=== PATIENT | male | born 1960 | race Caucasian/White ===

== ENCOUNTER 2018-10-15 20:02 | Inpatient (IN) | payer MEDICARE, OTHER ==
[~2018-10-15] VITALS: Ht 200.7 cm; Wt 57.4 kg
[~2018-10-15 20:02] MED LIST: ATOR20 PO; COLCHICINE0.6 MG PO; GABA300 PO; HYDACE5 PO; IBUP800 PO; Keflex500 MG PO; Norco 5-325 Ta1 EACH PO; OXYACE5T PO; PHENY100ER PO
[2018-10-15 21:19] LABS: BASOPHILS ABSOLUTE AUTO 0.04 K/mm3 (0.00-0.23); BASOPHILS PERCENT AUTO 0 % (0-2); EOSINOPHILS ABSOLUTE AUTO 0.01 K/mm3 (0.00-0.68); EOSINOPHILS PERCENT AUTO 0 % (0-6); Hematocrit 49.1 % (37.0-53.0); Hemoglobin 16.8 g/dL (13.5-17.5); IMMATURE GRAN ABSOLUTE AUTO 0.08 K/mm3 (0.00-0.10); IMMATURE GRAN PERCENT AUTO 1 % (0-1); LYMPHOCYTES ABSOLUTE AUTO 1.16 K/mm3 (0.84-5.20); LYMPHOCYTES PERCENT AUTO 8 % (21-46); MONOCYTES ABSOLUTE AUTO 0.92 K/mm3 (0.16-1.47); MONOCYTES PERCENT AUTO 6 % (4-13); Mean Corpuscular HGB 30.4 pg (26.0-34.0); Mean Corpuscular HGB Conc 34.2 g/dL (31.5-36.5); Mean Corpuscular Volume 89 fL (80-100); Mean Platelet Volume 9.6 fL (9.1-12.4); NEUTROPHILS ABSOLUTE AUTO 12.31 K/mm3 (1.96-9.15); NEUTROPHILS PERCENT AUTO 85 % (41-73); Platelet Count 260 K/mm3 (150-400); RDW Coefficient Variation 12.7 % (11.7-14.2); Red Blood Cell Count 5.53 M/mm3 (4.30-5.90); White Blood Cell Count 14.52 K/mm3 (4.00-11.30)
[2018-10-15 21:24] LABS: Source, Urine Voided
[2018-10-15 21:25] LABS: Bilirubin, Urine Neg (Neg); Blood, Urine 1+ (Neg); Glucose Qualitative, Urine Neg (Neg); Ketones, Urine 2+ (Neg); Leukocyte Esterase, Urine 1+ (Neg); Nitrite, Urine Neg (Neg); Protein, Urine 2+ (Neg); Urobilinogen, Urine 1+ (Normal)
[2018-10-15 21:33] LABS: Appearance, Urine Clear (Clear); Color, Urine Amber (P-Yellow)
[2018-10-15 21:35] LABS: Bacteria Many /hpf; Red Blood Cells, Urine 0-2 /hpf (0-2); Squamous Epithelial Cells Few /hpf (Few)
[2018-10-15 21:36] LABS: Mucus Mod (0-Heavy)
[2018-10-15 21:37] LABS: U Amphetamine Screen Not Detected; U Barbituate Screen DETECTED; U Benzodiazapine Screen Not Detected; U Buprenorphine Screen Not Detected; U Cannabinoids Screen DETECTED; U Cocaine Screen Not Detected; U Methadone Screen Not Detected; U Methamphetamine Screen Not Detected; U Opiates Screen Not Detected; U Oxycodone Screen Not Detected; U Phencyclidine Screen Not Detected; U Propoxyphene Screen Not Detected
[2018-10-15 21:41] LABS: Alanine Aminotransfer (ALT/SGP 22 U/L (12-78); Albumin, Blood 3.9 g/dL (3.4-5.0); Albumin/Globulin Ratio 0.9 (0.8-1.8); Alk Phos 109 U/L (50-136); Anion Gap 10 mmol/L (6-16); Aspartate Aminotrans (AST/SGOT 71 U/L (12-37); Bilirubin, Total 0.5 mg/dL (0.1-1.0); Blood Urea Nitrogen 23 mg/dL (8-24); CO2, Blood 26 mmol/L (21-32); Calcium, Blood 9.5 mg/dL (8.5-10.1); Chloride, Blood 97 mmol/L (98-108); Creatinine, Blood 0.85 mg/dL (0.60-1.20); Ethanol (Alcohol), Blood, Med <3 mg/dL; Globulin, Blood 4.3 g/dL (2.2-4.0); Glomerular Filtration Rate >60 (60-); Glucose, Blood 95 mg/dL (70-99); Potassium, Blood 4.1 mmol/L (3.5-5.5); Sodium, Blood 133 mmol/L (136-145); Total Protein, Blood 8.2 g/dL (6.4-8.2)
[2018-10-15 21:45] LABS: Dilantin (Phenytoin), Total 5.6 ug/mL (10.0-20.0)
[2018-10-15 22:04] LABS: Base Excess Venous 5.2 mmol/L; Bicarbonate Venous 26.2 mmol/L (24.0-30.0); PCO2 Venous 51.1 mmHg (38-42); PO2 Venous 26.4 mmHg (38-42); pH Blood Venous 7.38 (7.34-7.37)
--- NOTE | 2018-10-16 00:45 | NUR ---
RECEIVED HAND OFF FROM ER NURSE USING SBAR. TRANSPORTED TO ROOM 224 VIA WHEELCHAIR AT 0030. TRANSFERED SELF TO BED, TOLERATED WELL. SPOUSE AT BEDSIDE. AAO X3, BLANCHARD, FOLLOWS ALL COMMANDS. ORIENTED TO ROOM, CALL SYSTEM, AND POC, VOICES UNDERSTANDING. RESPIRATIONS EVEN AND UNLABORED ON ROOM AIR. LUNG SOUNDS CLEAR BILATERALLY. ABDOMEN SOFT AND NONDISTENDED. BOWEL SOUNDS PRESENT IN ALL QUADS. RIGHT FA 20G SL PIV IS PATENT, FLUSHING WITH EASE. CONTINENT OF BOWLE AND BLADDER, USES URINAL AT BEDSIDE. DENIES PAIN, DISCOMFORT, OR FURTHER NEED AT THIS TIME. SAFETY MEAUSRES IN PLACE. ADMISSION ASSESSMENT IN PROGRESS. WILL CONTINUE TO MONITOR.
[2018-10-16 05:12] LABS: Hematocrit 50.4 % (37.0-53.0); Hemoglobin 17.2 g/dL (13.5-17.5); Mean Corpuscular HGB 30.1 pg (26.0-34.0); Mean Corpuscular HGB Conc 34.1 g/dL (31.5-36.5); Mean Corpuscular Volume 88 fL (80-100); Mean Platelet Volume 9.7 fL (9.1-12.4); Platelet Count 242 K/mm3 (150-400); RDW Coefficient Variation 12.7 % (11.7-14.2); RDW Standard Deviation 41.2 fL (35.1-46.3); Red Blood Cell Count 5.71 M/mm3 (4.30-5.90)
[2018-10-16 05:43] LABS: Alanine Aminotransfer (ALT/SGP 23 U/L (12-78); Albumin, Blood 3.7 g/dL (3.4-5.0); Albumin/Globulin Ratio 0.9 (0.8-1.8); Alk Phos 101 U/L (50-136); Anion Gap 7 mmol/L (6-16); Aspartate Aminotrans (AST/SGOT 71 U/L (12-37); Bilirubin, Total 0.7 mg/dL (0.1-1.0); Blood Urea Nitrogen 18 mg/dL (8-24); Bun/Creatinine Ratio 26.5 (12.0-20.0); CO2, Blood 26 mmol/L (21-32); Chloride, Blood 99 mmol/L (98-108); Creatinine, Blood 0.68 mg/dL (0.60-1.20); Globulin, Blood 4.2 g/dL (2.2-4.0); Glomerular Filtration Rate >60 (60-); Glucose, Blood 91 mg/dL (70-99); Sodium, Blood 132 mmol/L (136-145); Total Protein, Blood 7.9 g/dL (6.4-8.2)
[2018-10-16 05:56] LABS: Troponin I 0.606 ng/mL (0.000-0.040)
[2018-10-16 06:12] LABS: Creatine Kinase MB 7.3 ng/mL (0.0-3.6); Creatine Kinase MB Index 0.8 (0.0-4.0)
--- NOTE | 2018-10-16 06:53 | NUR ---
SHIFT SUMMARY RESTED WELL, ABLE TO REPOSITION SELF IN BED. AAO X3, NO DEFICITES NOTED. DENIES FURTHER NEEDS AT THIS TIME. SAFETY MEASURES IN PLACE. WILL CONTINUE TO MONITOR.
--- NOTE | 2018-10-16 08:00 | NUR ---
dr villarreal to round on pt, cardiac consult called in to dr dinh per cherelle. pt a/0 x 4, pleasant/cooperative, no chest pain at his time, in room
[2018-10-16 09:14] LABS: CHOL/HDL RATIO 2.7; Cholesterol 184 mg/dL (50-200); HDL Cholesterol 67 mg/dL (>39); LDL/HDL RATIO 1.4; Low Density Lipoprotein Chol 93 mg/dL (0-110); Triglycerides 119 mg/dL (30-160); Very Low Density Lipoprot Chol 23 mg/dL (6-32)
--- NOTE | 2018-10-16 11:00 | NUR ---
Echocardiogram using 9.0ml of agitated saline contrast completed.
[2018-10-16 14:06] LABS: Troponin I 0.458 ng/mL (0.000-0.040)
[2018-10-16 14:21] LABS: Creatine Kinase MB 4.7 ng/mL (0.0-3.6); Creatine Kinase MB Index 0.6 (0.0-4.0)
--- NOTE | 2018-10-16 18:07 | NUR ---
shift summary: vss, no acute changes, no chest pain. pt tolerated PO intake with no n/v. pt worked with PT today, walked in the hallway. Urine output >500 ml. pt remained pleasantly confused/forgetful, reorients easily, remains with pt a great portion of the shift. awaiting cardiac consult, which was called to the [facility] approximately 1200
--- NOTE | 2018-10-17 04:36 | NUR ---
SHIFT SUMMARY PT A&O TO SELF AND , FOLLOWS DIRECTIONS, COOPERATIVE, PLEASENT, ASKS QUESTIONS. PT FORGETFUL; REPEATS INFORMATION WITHIN THE SAME CONVERSATIONS. PT PULLED IV X1. SBA WHEN OOB FOR SAFETY. PT DOES NOT CALL FOR ASSIST; BED ALARM SET ON. AT BEDSIDE. EQUAL MANAGER OF BUSINESS OPERATIONS/EXT STRENGTH. PUPILS EQUAL AND REACTIVE BILAT. PT DENIES SOB, CP AND NAUSEA T/O SHIFT. TELEMETRY IN PLACE; SR WITH OCC PAC'S PER TRAIN STATION AGENT. PT REPORTS CHRONIC PAIN AT BASELINE. CALL LIGHT IN REACH. WCTM UNTIL REPORT TO DAY SHIFT RN.
--- NOTE | 2018-10-17 16:50 | NUR ---
pt and requested to take a nap, close the door and have been undisturbed since 1430. pt has been sleeping on nursing rounding
--- NOTE | 2018-10-17 18:06 | NUR ---
shift summary: vss, no acute changes, pt tolerated PO intake with no n/v, pt remained a/o x person but forgetful and confused at times, reorients easily, remained pleasant/cooperative. pt received venous Doppler study this AM, cardiac consult attended and spoke with family. pt received nuclear medicine injection at 1230 today, will complete stress test tomorrow, will remain NPO after midnight tonight. bed alarm kept on r/t confusion. pt ambulated in hallway with , reported slight dizziness and returned to room.
--- NOTE | 2018-10-17 19:02 | NUR ---
pt taken off tele while his wheels him outside in the wheelchair
--- NOTE | 2018-10-18 03:45 | NUR ---
SUMMARY: PT ADMITTED FOR AMS, ACUTE ENCEPHALOPATHY. NO ACUTE CHANGE TONIGHT. VSS, ALERT, CONTINUES TO BE FORGETFUL. ORIENTED TO PERSON, PLACE BUT NOT TIME. FOLLOWS DIRECTIONS AND IS PLEASENT. BED ALARM FOR SAFETY. NO CHANGE IN TELE TONIGHT, NEW IV STARTED. PT IS SBA TO BATHROOM. PT HAS BEEN NPO SINCE 0000, PLAN IS FOR STRESS TEST TODAY. PT AT BEDSIDE TONIGHT.
--- NOTE | 2018-10-18 12:57 | NUR ---
CALLED HOSPITALIST INFORMED HIM THAT DUE TO THE PT DRINKING EVEN A SMALL AMOUNT OF COFFEE THIS MORNING, I'VE BEEN INFORMED THAT THE STRESS TEST CAN NOT BE PERFORMED AND MUST BE RESCHEDULED. I'VE ALSO INFORMED THE CLINICAL COORDINATOR OF THIS OCCURENCE, WELL THE CHARGE NURSE. IT IS ESSENTIAL THAT THIS PT NOT CONSUME ANY CAFFEINE FOR 12 HOURS PREVIOUS TO THE TEST, AND NO FOOD FOR 4 HOURS PREVIOUS TO THE TEST.
--- NOTE | 2018-10-18 16:48 | NUR ---
SHIFT SUMMARY 58 YR OLD MALE ADMITTED FOR ACUTE ENCEPHALOPATHY. FULL CODE. MRI REVEALED A STROKE. NSTEMI. STRESS TEST THAT WAS SCHEDULED TODAY HAS BEEN RESCHEDULED FOR TOMORROW AT NOON. NO CAFFEINE, CHOCOLATE, ICE CREAM AFTER MIDNIGHT TONIGHT. NPO EXCEPT MEDS AND ICE CHIPS AT 8 AM TOMORROW. REGULAR DIET TODAY. PT HAS HX OF HTN, TBI, AND WAS A 3 PACK A DAY SMOKER UNTIL ADMIT. 1 ASSIST DUE TO PERIODS OF CONFUSION. IS IN THE ROOM.
[2018-10-19 05:10] LABS: CHOL/HDL RATIO 2.6; Cholesterol 147 mg/dL (50-200); HDL Cholesterol 57 mg/dL (>39); LDL/HDL RATIO 1.3; Low Density Lipoprotein Chol 77 mg/dL (0-110); Triglycerides 67 mg/dL (30-160); Very Low Density Lipoprot Chol 13 mg/dL (6-32)
--- NOTE | 2018-10-19 06:03 | NUR ---
PT HAD NO ACUTE CHANGES T/O NIGHT; VSS, HR SINUS PER TELE MONITOR. PT REMAINS FORGETFUL, REORIENTS EASILY. PT APPEARED TO SLEEP WELL T/O NIGHT. PT EDUCATED ON DIET RESTRICITONS FOR PLAN FOR STRESS TEST TODAY. PLAN FOR NPO AT 0800 W/TEST AT 1200. ATTENTIVE IN ROOM. BED ALARM ON, WILL CONT TO MONITOR UNTIL REP GIVEN TO ONCOMING RN.
--- NOTE | 2018-10-19 16:07 | NUR ---
PT TO SECOND PORTION OF STRESS TEST.
--- NOTE | 2018-10-19 17:03 | NUR ---
SUMMARY NO ACUTE CHANGES T/O SHIFT. PT FORGETFUL AT TIMES. DENIES ANY PAIN, N/V OR SOB AT THIS TIME. STRESS TEST COMPLETED. AWAITING RESULTS. PT RESTING IN BED. DENIES ANY NEEDS AT THIS TIME.
[2018-10-19] MEDS ORDERED: ATOR40TA PO (19:28)
[2018-10-19] MEDS ORDERED: ASPI81CH PO (19:28)
[2018-10-19] MEDS ORDERED: NICO21TP TOP (19:29)
[2018-10-19] MEDS ORDERED: Lopressor 25 mg25 MG PO (19:29)
--- NOTE | 2018-10-19 19:43 | NUR ---
PT DISCHARGED REVIEWED DC PAPERWORK W/PT AND SPOUSE; VERBALIZED UNDERSTANDING. PRESCRIPTIONS CALLED IN TO PAULETTE. TELE RETURNED TO PCU. PT LEFT UNIT BY AMBULATION ACCOMPANIED BY SPOUSE W/DC PAPERWORK AND POSSESSIONS IN HAND.
== END 2018-10-19 19:40 | disposition home or self-care (01) | DRG 65 ==
LOC: ER 20:02 → SURS 20:03
PROVIDERS: Emergency Medicine; Internal Medicine; ADMIT Internal Medicine
DX: I63.9 Cerebral infarction, unspecified (principal); G93.40 Encephalopathy, unspecified; N39.0 Urinary tract infection, site not specified; I10 Essential (primary) hypertension; G40.909 Epilepsy, unspecified, not intractable, without status epilepticus; F17.210 Nicotine dependence, cigarettes, uncomplicated; J44.9 Chronic obstructive pulmonary disease, unspecified
CPT/HCPCS: 36415; 70450; 70551; 71046; 78452; 80053; 80061; 80185; 81001; 82140; 82550; 82553; 82803; 83880; 84443; 84484; 85025; 85027; 87086; 93005; 93010; 93017; 93306; 93880; 96361; 96365; 96372; 97162; 97165; 97530; 99285-25; A9500; G0378; G0480; J0696; J0706; J1650; J2785; J7030; J7050

== ENCOUNTER 2018-10-21 11:58 | Emergency (ER) | payer MEDICARE, OTHER ==
[~2018-10-21] VITALS: Ht 165.1 cm; Wt 85.3 kg
[~2018-10-21 11:58] MED LIST changes: +ASPI81CH PO; +ATOR40TA PO; +Lopressor 25 mg25 MG PO; +NICO21TP TOP
[2018-10-21 12:49] LABS: BASOPHILS ABSOLUTE AUTO 0.03 K/mm3 (0.00-0.23); BASOPHILS PERCENT AUTO 1 % (0-2); EOSINOPHILS ABSOLUTE AUTO 0.15 K/mm3 (0.00-0.68); EOSINOPHILS PERCENT AUTO 3 % (0-6); Hematocrit 40.4 % (37.0-53.0); Hemoglobin 13.3 g/dL (13.5-17.5); IMMATURE GRAN ABSOLUTE AUTO 0.02 K/mm3 (0.00-0.10); IMMATURE GRAN PERCENT AUTO 0 % (0-1); LYMPHOCYTES ABSOLUTE AUTO 1.34 K/mm3 (0.84-5.20); LYMPHOCYTES PERCENT AUTO 22 % (21-46); MONOCYTES ABSOLUTE AUTO 0.69 K/mm3 (0.16-1.47); MONOCYTES PERCENT AUTO 12 % (4-13); Mean Corpuscular HGB Conc 32.9 g/dL (31.5-36.5); Mean Corpuscular Volume 91 fL (80-100); Mean Platelet Volume 10.5 fL (9.1-12.4); NEUTROPHILS ABSOLUTE AUTO 3.74 K/mm3 (1.96-9.15); NEUTROPHILS PERCENT AUTO 63 % (41-73); Platelet Count 223 K/mm3 (150-400); RDW Coefficient Variation 12.7 % (11.7-14.2); RDW Standard Deviation 42.7 fL (35.1-46.3); Red Blood Cell Count 4.43 M/mm3 (4.30-5.90); White Blood Cell Count 5.97 K/mm3 (4.00-11.30)
[2018-10-21 13:05] LABS: Alanine Aminotransfer (ALT/SGP 35 U/L (12-78); Albumin, Blood 3.4 g/dL (3.4-5.0); Alk Phos 81 U/L (50-136); Anion Gap 5 mmol/L (6-16); Aspartate Aminotrans (AST/SGOT 58 U/L (12-37); Bilirubin, Total 0.2 mg/dL (0.1-1.0); Blood Urea Nitrogen 6 mg/dL (8-24); Bun/Creatinine Ratio 8.9 (12.0-20.0); CO2, Blood 32 mmol/L (21-32); Calcium, Blood 8.6 mg/dL (8.5-10.1); Chloride, Blood 98 mmol/L (98-108); Creatinine, Blood 0.67 mg/dL (0.60-1.20); Globulin, Blood 3.5 g/dL (2.2-4.0); Glomerular Filtration Rate >60 (60-); Glucose, Blood 79 mg/dL (70-99); Potassium, Blood 4.1 mmol/L (3.5-5.5); Sodium, Blood 135 mmol/L (136-145); Total Protein, Blood 6.9 g/dL (6.4-8.2); Troponin I 0.023 ng/mL (0.000-0.040)
== END 2018-10-21 14:18 | disposition home or self-care (01) ==
LOC: ER 11:58
PROVIDERS: Internal Medicine
DX: R07.89 Other chest pain (principal); Z91.030 Bee allergy status; Z79.899 Other long term (current) drug therapy; Z79.82 Long term (current) use of aspirin; F17.200 Nicotine dependence, unspecified, uncomplicated
CPT/HCPCS: 36415; 80053; 84484; 85025; 93005; 93010; 99284-25

== ENCOUNTER 2018-11-08 08:43 | Emergency (ER) | payer MEDICARE, OTHER ==
[~2018-11-08] VITALS: Ht 200.7 cm; Wt 65.8 kg
[2018-11-08 09:26] LABS: BASOPHILS ABSOLUTE AUTO 0.03 K/mm3 (0.00-0.23); BASOPHILS PERCENT AUTO 0 % (0-2); EOSINOPHILS ABSOLUTE AUTO 0.12 K/mm3 (0.00-0.68); EOSINOPHILS PERCENT AUTO 2 % (0-6); Hematocrit 44.7 % (37.0-53.0); Hemoglobin 14.8 g/dL (13.5-17.5); IMMATURE GRAN ABSOLUTE AUTO 0.02 K/mm3 (0.00-0.10); IMMATURE GRAN PERCENT AUTO 0 % (0-1); LYMPHOCYTES ABSOLUTE AUTO 1.33 K/mm3 (0.84-5.20); LYMPHOCYTES PERCENT AUTO 19 % (21-46); MONOCYTES ABSOLUTE AUTO 0.72 K/mm3 (0.16-1.47); MONOCYTES PERCENT AUTO 10 % (4-13); Mean Corpuscular HGB 30.9 pg (26.0-34.0); Mean Corpuscular HGB Conc 33.1 g/dL (31.5-36.5); Mean Corpuscular Volume 93 fL (80-100); Mean Platelet Volume 10.2 fL (9.1-12.4); NEUTROPHILS ABSOLUTE AUTO 4.78 K/mm3 (1.96-9.15); NEUTROPHILS PERCENT AUTO 68 % (41-73); Platelet Count 215 K/mm3 (150-400); RDW Coefficient Variation 13.3 % (11.7-14.2); RDW Standard Deviation 45.5 fL (35.1-46.3); Red Blood Cell Count 4.79 M/mm3 (4.30-5.90)
[2018-11-08 09:55] LABS: Alanine Aminotransfer (ALT/SGP 29 U/L (12-78); Albumin, Blood 3.9 g/dL (3.4-5.0); Albumin/Globulin Ratio 1.1 (0.8-1.8); Alk Phos 89 U/L (50-136); Anion Gap 5 mmol/L (6-16); Aspartate Aminotrans (AST/SGOT 20 U/L (12-37); Bilirubin, Total 0.3 mg/dL (0.1-1.0); Blood Urea Nitrogen 6 mg/dL (8-24); Bun/Creatinine Ratio 8.6 (12.0-20.0); CO2, Blood 32 mmol/L (21-32); Calcium, Blood 9.1 mg/dL (8.5-10.1); Chloride, Blood 102 mmol/L (98-108); Globulin, Blood 3.6 g/dL (2.2-4.0); Glomerular Filtration Rate >60 (60-); Glucose, Blood 88 mg/dL (70-99); Potassium, Blood 3.9 mmol/L (3.5-5.5); Sodium, Blood 139 mmol/L (136-145); Total Protein, Blood 7.5 g/dL (6.4-8.2)
== END 2018-11-08 14:37 | disposition home or self-care (01) ==
LOC: ER 08:43
PROVIDERS: Physician Assistant
DX: R42 Dizziness and giddiness (principal); J44.9 Chronic obstructive pulmonary disease, unspecified; G62.9 Polyneuropathy, unspecified; I10 Essential (primary) hypertension; F17.200 Nicotine dependence, unspecified, uncomplicated; Z86.73 Personal history of transient ischemic attack (TIA), and cerebral infarction without residual deficits
CPT/HCPCS: 70551; 80053; 80185; 85025; 99284-25

== ENCOUNTER 2018-11-12 21:58 | Emergency (ER) | payer MEDICARE, OTHER ==
[~2018-11-12] VITALS: Ht 200.7 cm; Wt 63.5 kg
[2018-11-12 23:40] LABS: BASOPHILS ABSOLUTE AUTO 0.03 K/mm3 (0.00-0.23); BASOPHILS PERCENT AUTO 0 % (0-2); EOSINOPHILS ABSOLUTE AUTO 0.23 K/mm3 (0.00-0.68); EOSINOPHILS PERCENT AUTO 3 % (0-6); Hematocrit 43.3 % (37.0-53.0); Hemoglobin 14.1 g/dL (13.5-17.5); IMMATURE GRAN ABSOLUTE AUTO 0.02 K/mm3 (0.00-0.10); IMMATURE GRAN PERCENT AUTO 0 % (0-1); LYMPHOCYTES PERCENT AUTO 28 % (21-46); MONOCYTES ABSOLUTE AUTO 0.84 K/mm3 (0.16-1.47); MONOCYTES PERCENT AUTO 13 % (4-13); Mean Corpuscular HGB 30.3 pg (26.0-34.0); Mean Corpuscular HGB Conc 32.6 g/dL (31.5-36.5); Mean Corpuscular Volume 93 fL (80-100); Mean Platelet Volume 10.8 fL (9.1-12.4); NEUTROPHILS ABSOLUTE AUTO 3.72 K/mm3 (1.96-9.15); NEUTROPHILS PERCENT AUTO 55 % (41-73); Platelet Count 191 K/mm3 (150-400); RDW Coefficient Variation 13.2 % (11.7-14.2); RDW Standard Deviation 45.3 fL (35.1-46.3); Red Blood Cell Count 4.66 M/mm3 (4.30-5.90); White Blood Cell Count 6.74 K/mm3 (4.00-11.30)
[2018-11-12 23:54] LABS: Alanine Aminotransfer (ALT/SGP 28 U/L (12-78); Albumin, Blood 3.7 g/dL (3.4-5.0); Albumin/Globulin Ratio 0.9 (0.8-1.8); Alk Phos 91 U/L (50-136); Anion Gap 6 mmol/L (6-16); Aspartate Aminotrans (AST/SGOT 29 U/L (12-37); Bilirubin, Total 0.3 mg/dL (0.1-1.0); Blood Urea Nitrogen 11 mg/dL (8-24); Bun/Creatinine Ratio 13.1 (12.0-20.0); CO2, Blood 31 mmol/L (21-32); Calcium, Blood 8.6 mg/dL (8.5-10.1); Chloride, Blood 102 mmol/L (98-108); Creatinine, Blood 0.84 mg/dL (0.60-1.20); Globulin, Blood 3.9 g/dL (2.2-4.0); Glomerular Filtration Rate >60 (60-); Glucose, Blood 107 mg/dL (70-99); Potassium, Blood 3.7 mmol/L (3.5-5.5); Sodium, Blood 139 mmol/L (136-145); Total Protein, Blood 7.6 g/dL (6.4-8.2); Troponin I <0.015 ng/mL (0.000-0.040)
== END 2018-11-13 01:53 | disposition home or self-care (01) ==
LOC: ER 21:58
PROVIDERS: Emergency Medicine
DX: R20.2 Paresthesia of skin (principal); R00.2 Palpitations; Z91.030 Bee allergy status; Z79.899 Other long term (current) drug therapy; Z79.82 Long term (current) use of aspirin; Z86.73 Personal history of transient ischemic attack (TIA), and cerebral infarction without residual deficits; F17.200 Nicotine dependence, unspecified, uncomplicated
CPT/HCPCS: 36415; 80053; 84484; 85025; 93005; 93010; 99284-25

== ENCOUNTER 2018-11-15 09:25 | Emergency (ER) | payer MEDICARE, OTHER ==
[~2018-11-15] VITALS: Ht 200.7 cm; Wt 65.8 kg
[2018-11-15 09:50] LABS: BASOPHILS ABSOLUTE AUTO 0.03 K/mm3 (0.00-0.23); BASOPHILS PERCENT AUTO 0 % (0-2); EOSINOPHILS ABSOLUTE AUTO 0.14 K/mm3 (0.00-0.68); EOSINOPHILS PERCENT AUTO 2 % (0-6); Hematocrit 45.5 % (37.0-53.0); Hemoglobin 14.9 g/dL (13.5-17.5); IMMATURE GRAN ABSOLUTE AUTO 0.01 K/mm3 (0.00-0.10); IMMATURE GRAN PERCENT AUTO 0 % (0-1); LYMPHOCYTES ABSOLUTE AUTO 1.02 K/mm3 (0.84-5.20); LYMPHOCYTES PERCENT AUTO 12 % (21-46); MONOCYTES PERCENT AUTO 9 % (4-13); Mean Corpuscular HGB 29.9 pg (26.0-34.0); Mean Corpuscular HGB Conc 32.7 g/dL (31.5-36.5); Mean Corpuscular Volume 91 fL (80-100); Mean Platelet Volume 10.2 fL (9.1-12.4); NEUTROPHILS ABSOLUTE AUTO 6.32 K/mm3 (1.96-9.15); NEUTROPHILS PERCENT AUTO 77 % (41-73); Platelet Count 194 K/mm3 (150-400); RDW Coefficient Variation 13.2 % (11.7-14.2); RDW Standard Deviation 44.3 fL (35.1-46.3); Red Blood Cell Count 4.99 M/mm3 (4.30-5.90); White Blood Cell Count 8.22 K/mm3 (4.00-11.30)
[2018-11-15 10:14] LABS: Alanine Aminotransfer (ALT/SGP 21 U/L (12-78); Albumin, Blood 3.5 g/dL (3.4-5.0); Albumin/Globulin Ratio 0.9 (0.8-1.8); Alk Phos 95 U/L (50-136); Anion Gap 7 mmol/L (6-16); Aspartate Aminotrans (AST/SGOT 26 U/L (12-37); Bilirubin, Total 0.4 mg/dL (0.1-1.0); Blood Urea Nitrogen 5 mg/dL (8-24); Bun/Creatinine Ratio 7.5 (12.0-20.0); CO2, Blood 29 mmol/L (21-32); Calcium, Blood 8.6 mg/dL (8.5-10.1); Chloride, Blood 99 mmol/L (98-108); Creatinine, Blood 0.67 mg/dL (0.60-1.20); Globulin, Blood 3.8 g/dL (2.2-4.0); Glomerular Filtration Rate >60 (60-); Glucose, Blood 90 mg/dL (70-99); Sodium, Blood 135 mmol/L (136-145); Total Protein, Blood 7.3 g/dL (6.4-8.2); Valproic Acid 5.3 ug/mL (50.0-100.0)
[2018-11-15 10:19] LABS: Troponin I <0.015 ng/mL (0.000-0.040)
== END 2018-11-15 13:37 | disposition home or self-care (01) ==
LOC: ER 09:25
PROVIDERS: Emergency Medicine
DX: R42 Dizziness and giddiness (principal); R27.0 Ataxia, unspecified; T42.0X5A Adverse effect of hydantoin derivatives, initial encounter; Z86.73 Personal history of transient ischemic attack (TIA), and cerebral infarction without residual deficits; Z91.030 Bee allergy status; Z79.899 Other long term (current) drug therapy; Z79.82 Long term (current) use of aspirin; F17.200 Nicotine dependence, unspecified, uncomplicated
CPT/HCPCS: 70450; 80053; 80164; 80185; 84443; 84484; 85025; 93005; 93010; 96360; 99284-25; J7030

== ENCOUNTER 2019-08-24 09:16 | Emergency (ER) | payer MEDICARE ==
[~2019-08-24] VITALS: Ht 200.7 cm; Wt 81.7 kg
== END 2019-08-24 10:54 | disposition home or self-care (01) ==
LOC: ER 09:16
DX: M25.512 Pain in left shoulder (principal); I51.7 Cardiomegaly; F17.210 Nicotine dependence, cigarettes, uncomplicated; Z86.73 Personal history of transient ischemic attack (TIA), and cerebral infarction without residual deficits; Z91.030 Bee allergy status; Z79.82 Long term (current) use of aspirin; Z79.899 Other long term (current) drug therapy
CPT/HCPCS: 72070; 73030; 93005; 93010; 99283-25

== ENCOUNTER 2020-10-07 17:33 | Inpatient (IN) | payer MEDICARE ==
[~2020-10-07] VITALS: Ht 200.7 cm; Wt 68.9 kg
[~2020-10-07 17:33] MED LIST changes: -ASPI81CH PO; +ASPIR 8181 MG PO; +MECL25 PO
[2020-10-07 18:03] LABS: BASOPHILS ABSOLUTE AUTO 0.05 K/mm3 (0.00-0.23); BASOPHILS PERCENT AUTO 1 % (0-2); EOSINOPHILS ABSOLUTE AUTO 0.05 K/mm3 (0.00-0.68); EOSINOPHILS PERCENT AUTO 1 % (0-6); Hematocrit 44.8 % (37.0-53.0); Hemoglobin 14.4 g/dL (13.5-17.5); IMMATURE GRAN ABSOLUTE AUTO 0.05 K/mm3 (0.00-0.10); IMMATURE GRAN PERCENT AUTO 1 % (0-1); LYMPHOCYTES ABSOLUTE AUTO 1.84 K/mm3 (0.84-5.20); LYMPHOCYTES PERCENT AUTO 23 % (21-46); MONOCYTES PERCENT AUTO 6 % (4-13); Mean Corpuscular HGB 32.7 pg (26.0-34.0); Mean Corpuscular HGB Conc 32.1 g/dL (31.5-36.5); Mean Corpuscular Volume 102 fL (80-100); Mean Platelet Volume 10.4 fL (9.1-12.4); NEUTROPHILS ABSOLUTE AUTO 5.49 K/mm3 (1.96-9.15); NEUTROPHILS PERCENT AUTO 69 % (41-73); Platelet Count 183 K/mm3 (150-400); RDW Standard Deviation 52.9 fL (35.1-46.3); White Blood Cell Count 7.98 K/mm3 (4.00-11.30)
[2020-10-07 18:11] LABS: PCO2 Arterial 43.7 mmHg (35-45); PO2 Arterial 176 mmHg (80-100); pH Blood Arterial 7.06 (7.35-7.45)
[2020-10-07] MEDS ORDERED: Hydrochloroth12.5 MG PO (18:13)
[2020-10-07] MEDS ORDERED: ATOR40TA PO (18:13)
[2020-10-07] MEDS ORDERED: LOSARTAN POTAS100 MG PO (18:14)
[2020-10-07] MEDS ORDERED: GABAPENTIN600 MG PO (18:14)
[2020-10-07] MEDS ORDERED: METOPROLOL TART25 MG PO (18:14)
[2020-10-07] MEDS ORDERED: AMLODIPINE BESYL5 MG PO (18:15)
[2020-10-07 18:17] LABS: Ethanol (Alcohol), Blood, Med 13 mg/dL; Magnesium, Blood 2.3 mg/dL (1.6-2.4)
[2020-10-07 18:20] LABS: Alanine Aminotransfer (ALT/SGP 28 U/L (12-78); Albumin, Blood 3.7 g/dL (3.4-5.0); Albumin/Globulin Ratio 0.9 (0.8-1.8); Alk Phos 118 U/L (50-136); Anion Gap 28 mmol/L (6-16); Aspartate Aminotrans (AST/SGOT 69 U/L (12-37); Bilirubin, Total 0.4 mg/dL (0.1-1.0); Blood Urea Nitrogen 11 mg/dL (8-24); Bun/Creatinine Ratio 10.2 (12.0-20.0); CO2, Blood 11 mmol/L (21-32); Calcium, Blood 8.9 mg/dL (8.5-10.1); Chloride, Blood 90 mmol/L (98-108); Creatinine, Blood 1.08 mg/dL (0.60-1.20); Dilantin (Phenytoin), Total 13.2 ug/mL (10.0-20.0); Globulin, Blood 4.1 g/dL (2.2-4.0); Glomerular Filtration Rate >60 (60-); Glucose, Blood 270 mg/dL (70-99); Potassium, Blood 3.2 mmol/L (3.5-5.5); Sodium, Blood 129 mmol/L (136-145); Total Protein, Blood 7.8 g/dL (6.4-8.2); Troponin I 0.068 ng/mL (0.000-0.040)
[2020-10-07 18:44] LABS: Source, Urine Catheter
[2020-10-07 18:49] LABS: Appearance, Urine Clear (Clear); Bilirubin, Urine Neg (Neg); Blood, Urine 4+ (Neg); Color, Urine Amber (P-Yellow); Glucose Qualitative, Urine Neg (Neg); Ketones, Urine 1+ (Neg); Leukocyte Esterase, Urine Neg (Neg); Nitrite, Urine Neg (Neg); Protein, Urine 4+ (Neg); Specific Gravity, Urine 1.025 (1.003-1.022); Urobilinogen, Urine NORM (Normal)
[2020-10-07 18:58] LABS: CPK Creatine Kinase 81 U/L (39-308)
[2020-10-07 18:59] LABS: Amorphous Mod (0-Heavy); Bacteria Few /hpf; Mucus Light (0-Heavy); Renal Epithelial Rare /hpf (0-Rare); Spermatozoa Few /hpf; Squamous Epithelial Cells Rare /hpf (Few); Transitional Epithelial Cells Few /hpf (0-Rare); White Blood Cells, Urine 0-2 /hpf (0-5)
[2020-10-07 19:03] LABS: U Amphetamine Screen Not Detected; U Barbituate Screen DETECTED; U Benzodiazapine Screen Not Detected; U Buprenorphine Screen Not Detected; U Cannabinoids Screen Not Detected; U Cocaine Screen Not Detected; U Methadone Screen Not Detected; U Methamphetamine Screen Not Detected; U Opiates Screen Not Detected; U Oxycodone Screen Not Detected; U Phencyclidine Screen Not Detected; U Propoxyphene Screen Not Detected
[2020-10-07 20:35] LABS: PCO2 Arterial 42.3 mmHg (35-45); PO2 Arterial 158 mmHg (80-100); pH Blood Arterial 7.42 (7.35-7.45)
--- NOTE | 2020-10-07 21:35 | NUR ---
ADMIT RECEIVED FROM ER VIA GURNEY. INTUBATED- AC 16, TV 500, PEEP 5, FIO2 40%. SEDATED WITH VERSED AT 7MG/HR. PT SITTING UP IN BED AND REACHING FOR ETT. BILATERAL SOFT WRIST RESTRAINTS IN PLACE TO PREVENT SELF-EXTUBATION. MOVING ALL EXTREMITIES, BUT NOT FOLLOWING ANY COMMANDS. MONITOR SHOWS NSR, RATE 70s. BP STABLE. TORRES PATENT WITH CLOUDY YELLOW URINE. OG CLAMPED AT THIS TIME. NS INFUSING AT 200CC/HR PER ORDER. SEE ADMIT ASSESSMENT FOR FULL ASSESSMENT.
[2020-10-08 01:56] LABS: Troponin I 2.34 ng/mL (0.000-0.040)
[2020-10-08 02:17] LABS: Creatine Kinase MB Index 2.4 (0.0-4.0)
[2020-10-08 05:02] LABS: BASOPHILS ABSOLUTE AUTO 0.03 K/mm3 (0.00-0.23); BASOPHILS PERCENT AUTO 0 % (0-2); EOSINOPHILS ABSOLUTE AUTO 0.03 K/mm3 (0.00-0.68); EOSINOPHILS PERCENT AUTO 0 % (0-6); Hematocrit 39.4 % (37.0-53.0); IMMATURE GRAN ABSOLUTE AUTO 0.04 K/mm3 (0.00-0.10); IMMATURE GRAN PERCENT AUTO 1 % (0-1); LYMPHOCYTES ABSOLUTE AUTO 0.93 K/mm3 (0.84-5.20); LYMPHOCYTES PERCENT AUTO 11 % (21-46); MONOCYTES ABSOLUTE AUTO 1.12 K/mm3 (0.16-1.47); MONOCYTES PERCENT AUTO 13 % (4-13); Mean Corpuscular HGB 32.5 pg (26.0-34.0); Mean Corpuscular HGB Conc 35.5 g/dL (31.5-36.5); Mean Platelet Volume 10.1 fL (9.1-12.4); NEUTROPHILS ABSOLUTE AUTO 6.22 K/mm3 (1.96-9.15); NEUTROPHILS PERCENT AUTO 74 % (41-73); Platelet Count 108 K/mm3 (150-400); RDW Coefficient Variation 14.1 % (11.7-14.2); RDW Standard Deviation 47.9 fL (35.1-46.3); Red Blood Cell Count 4.31 M/mm3 (4.30-5.90); White Blood Cell Count 8.37 K/mm3 (4.00-11.30)
[2020-10-08 05:03] LABS: Mean Corpuscular Volume 91 fL (80-100)
[2020-10-08 05:13] LABS: Alanine Aminotransfer (ALT/SGP 27 U/L (12-78); Albumin, Blood 3.1 g/dL (3.4-5.0); Albumin/Globulin Ratio 0.9 (0.8-1.8); Alk Phos 92 U/L (50-136); Anion Gap 9 mmol/L (6-16); Aspartate Aminotrans (AST/SGOT 84 U/L (12-37); Bilirubin, Total 0.7 mg/dL (0.1-1.0); Blood Urea Nitrogen 11 mg/dL (8-24); Bun/Creatinine Ratio 11.3 (12.0-20.0); CO2, Blood 26 mmol/L (21-32); Calcium, Blood 8.1 mg/dL (8.5-10.1); Chloride, Blood 98 mmol/L (98-108); Creatinine, Blood 0.97 mg/dL (0.60-1.20); Globulin, Blood 3.4 g/dL (2.2-4.0); Glomerular Filtration Rate >60 (60-); Glucose, Blood 69 mg/dL (70-99); Potassium, Blood 3.2 mmol/L (3.5-5.5); Sodium, Blood 133 mmol/L (136-145); Total Protein, Blood 6.5 g/dL (6.4-8.2)
--- NOTE | 2020-10-08 06:41 | NUR ---
SHIFT SUMMARY NO ACUTE CHANGES. REMAINS INTUBATED- AC 16, TV 500, PEEP 5, FIO2 25%. RR 16-20. SEDATED WITH PROPOFOL AT 35MCG/KG/MIN AND VERSED AT 3MG/HR. ATTEMPTS TO TITRATE SEDATION DOWN WERE UNSUCCESSFUL D/T INCREASED AGITATION. PT SITS UP IN BED, BEATS LEFT HAND AGAINST THE SIDE RAIL, AND PULLS AGAINST RESTRAINTS. DOES NOT CALM WITH REASSURANCE. MEDICATED WITH ATIVAN 2MG IV X 1 DOSE ADJUNCT TO SEDATION. VSS. TMAX 100.2F. OG TO LIS WITH SCANT BROWN DRAINAGE. TORRES PATENT AND DRAINING CLOUDY YELLOW URINE. KCL IV REPLACEMENT DONE PER ORDER. BICARB GTT AT 100CC/HR PER ORDER. CBG 65 THIS AM- 1/2 AMP D50 GIVEN IV. NO SEIZURE ACTIVITY NOTED. WILL REPORT TO ONCOMING RN WHEN AVAILABLE.
--- NOTE | 2020-10-08 10:14 | NUR ---
PT INTUBATED AND SEDATED WITH PROPOFOL AND VERSED. WHEN VERSED IS STOPPED PT WAKES QUICKLY. NOT FOLLOWING COMMANDS. CONSTANTLY TRIES TO SIT UP IN BED AND REACHES FOR ETT. WILL NOT OPEN EYE'S ON COMMAND. DR. APONTE UPDATED AT BEDSIDE. UPDATED VIA PHONE, SHE WILL BE IN TO SEE HIM AT VISITING HOURS. ECHO DONE THIS AM. NO CHANGES AT THIS POINT.
[2020-10-08 10:38] LABS: Troponin I 1.09 ng/mL (0.000-0.040)
[2020-10-08 10:53] LABS: Creatine Kinase MB 17.9 ng/mL (0.0-3.6); Creatine Kinase MB Index 1.9 (0.0-4.0)
[2020-10-08 11:28] LABS: Base Excess Venous 5.1 mmol/L; Bicarbonate Venous 26.8 mmol/L (24.0-30.0); pH Blood Venous 7.43 (7.34-7.37)
[2020-10-08 11:31] LABS: PO2 Venous 22.3 mmHg (38-42)
--- NOTE | 2020-10-08 13:30 | NUR ---
Echocardiogram completed.
[2020-10-08 13:59] LABS: Dilantin (Phenytoin), Total 17.9 ug/mL (10.0-20.0)
--- NOTE | 2020-10-08 14:24 | NUR ---
MORTGAGE BANKER AT BEDSIDE GETTING PT CONNECTED. HAD TO INCREASE SEDATION OTHERWISE PT TRIES TO SIT UP AND PULL AT ETT. DOES NOT REDIRECT WELL. DR. PARDO CAME IN AND SAW PT. EKG DONE. STATES HE IS NOT A STEMI BUT HE WILL REVIEW THE ECHO REPORT. WILL BE REPORTING OFF TO DIOR DONALDSON WHO WILL ASSUME CARE.
--- NOTE | 2020-10-08 15:00 | NUR ---
ASSUMED PT CARE. REMAINS SEDATED, INTUBATED, AND RESTRAINED. PROPOFOL @ 40 MCG/KG/MIN AND VERSED @ 5 MG/HR. PREP FOR EEG. WILL ATTEMPT TO TURN SEDATION OFF PER CORDUROY BRUSHER OPERATOR.
--- NOTE | 2020-10-08 15:01 | NUR ---
SEDATION ON STANDBY FOR EEG.
--- NOTE | 2020-10-08 15:28 | NUR ---
PT BECAME VERY AGITATED WITH THE STOBE LIGHT ON. THRASHING HIS HEAD BACK AND FORTH ON THE PILLOW, PULLING ON RESTRAINTS, SITTING UP IN BED. SEDATION RESUMED-DR. FAY SHOOK.
--- NOTE | 2020-10-08 16:00 | NUR ---
EEG COMPLETE. PT VERY AGITATED, PULLING ON RESTRAINTS, AND REACHING FOR ETT-TITATED PROPOFOL UP TO 60 MCG/KG/MIN. ONCE PT RELAXED, BED BATH GIVEN, LINEN CHANGE COMPLETED, SHAMPOO, AND ORAL CARE DONE-TOLERATED WELL. AFTER BED BATH, PROPOFOL RETURNED TO 40 MCG/KG/MIN. NO VENT CHANGES-MAINTAINS SATS>90% ON FIO2 21%-ETT SUCTION PRODUCTIVE OF MODERATE AMOUNT OF THICK, GREEN SPUTUM-DR. APONTE AWARE. DR. APONTE UPDATED PT SPOUSE SABRINA REGARDING STATUS AND PLAN OF CARE.
--- NOTE | 2020-10-08 17:30 | NUR ---
PT RESTING QUIETLY ON VENT. SPUTUM SPECIMEN SENT. G-62- AWARE. D5NS INCREASED TO 100 CC/HR.
--- NOTE | 2020-10-08 18:17 | NUR ---
Provided calm assurance of care and prayer to spouse at bedisde. Pt slept peacefully throughout conversation. Strongly encouraged self-care/rest. I will remain available.
--- NOTE | 2020-10-08 19:00 | NUR ---
ASSUMED CARE ASSUMED CARE OF PATIENT. REMAINS INTUBATED- AC 16, TV 500, PEEP 5, FIO2 21%. SEDATED WITH PROPOFOL AT 40MCG/KG/MIN AND VERSED GTT AT 5MG/HR. RESPONDS TO NOXIOUS STIMULI. MOVING ALL EXTREMITIES SPONTANEOUSLY. NOT FOLLOWING ANY COMMANDS. BILATERAL SOFT WRIST RESTRAINTS IN PLACE TO PREVENT SELF-EXTUBATION. MONITOR SHOWS NSR, RATE 70s. BP STABLE. TEMP 99.6F VIA TORRES TEMP PROBE. OG TO LIS WITH SCANT BROWN DRAINAGE. TORRES PATENT AND DRAINING CLOUDY YELLOW URINE. D5NS INFUSING AT 100CC/HR PER ORDER. NO SEIZURE ACTIVITY NOTED. SEE SHIFT ASSESSMENT FOR FULL ASSESSMENT.
--- NOTE | 2020-10-08 21:05 | NUR ---
BLOOD GLUCOSE DR. APONTE NOTIFIED OF CONTINUED LOW BLOOD GLUCOSE. NEW ORDERS RECEIVED.
[2020-10-08 21:51] LABS: Alanine Aminotransfer (ALT/SGP 26 U/L (12-78); Albumin, Blood 2.7 g/dL (3.4-5.0); Albumin/Globulin Ratio 0.8 (0.8-1.8); Alk Phos 93 U/L (50-136); Anion Gap 6 mmol/L (6-16); Aspartate Aminotrans (AST/SGOT 71 U/L (12-37); Bilirubin, Total 0.6 mg/dL (0.1-1.0); Blood Urea Nitrogen 8 mg/dL (8-24); Bun/Creatinine Ratio 7.8 (12.0-20.0); CO2, Blood 29 mmol/L (21-32); Calcium, Blood 7.9 mg/dL (8.5-10.1); Chloride, Blood 100 mmol/L (98-108); Creatinine, Blood 1.03 mg/dL (0.60-1.20); Globulin, Blood 3.4 g/dL (2.2-4.0); Glomerular Filtration Rate >60 (60-); Glucose, Blood 96 mg/dL (70-99); Potassium, Blood 3.1 mmol/L (3.5-5.5); Sodium, Blood 135 mmol/L (136-145); Total Protein, Blood 6.1 g/dL (6.4-8.2)
[2020-10-09 05:24] LABS: PCO2 Arterial 37.6 mmHg (35-45); PO2 Arterial 56.8 mmHg (80-100); pH Blood Arterial 7.48 (7.35-7.45)
[2020-10-09 06:19] LABS: BASOPHILS ABSOLUTE AUTO 0.02 K/mm3 (0.00-0.23); BASOPHILS PERCENT AUTO 0 % (0-2); EOSINOPHILS ABSOLUTE AUTO 0.01 K/mm3 (0.00-0.68); EOSINOPHILS PERCENT AUTO 0 % (0-6); Hematocrit 36.7 % (37.0-53.0); Hemoglobin 12.9 g/dL (13.5-17.5); IMMATURE GRAN ABSOLUTE AUTO 0.03 K/mm3 (0.00-0.10); IMMATURE GRAN PERCENT AUTO 0 % (0-1); LYMPHOCYTES ABSOLUTE AUTO 0.71 K/mm3 (0.84-5.20); LYMPHOCYTES PERCENT AUTO 7 % (21-46); MONOCYTES ABSOLUTE AUTO 0.61 K/mm3 (0.16-1.47); MONOCYTES PERCENT AUTO 6 % (4-13); Mean Corpuscular HGB 32.7 pg (26.0-34.0); Mean Corpuscular HGB Conc 35.1 g/dL (31.5-36.5); Mean Corpuscular Volume 93 fL (80-100); Mean Platelet Volume 10.3 fL (9.1-12.4); NEUTROPHILS ABSOLUTE AUTO 8.24 K/mm3 (1.96-9.15); NEUTROPHILS PERCENT AUTO 86 % (41-73); Platelet Count 106 K/mm3 (150-400); RDW Coefficient Variation 14.5 % (11.7-14.2); RDW Standard Deviation 50.1 fL (35.1-46.3); Red Blood Cell Count 3.94 M/mm3 (4.30-5.90); White Blood Cell Count 9.62 K/mm3 (4.00-11.30)
--- NOTE | 2020-10-09 06:34 | NUR ---
SHIFT SUMMARY NO ACUTE CHANGES. REMAINS INTUBATED- VENT SETTINGS AC 16, TV 500, PEEP 5, FIO2 21%. SEDATED WITH PROPOFOL BETWEEN 20-40MCG/KG/MIN AND VERSED BETWEEN 2-5MG/MIN. PROPOFOL NOW AT 25MCG/KG/MIN AND VERSED GTT AT 2MG/HR. AGITATED AND RESTLESS WHEN SEDATION TITRATED DOWN. MOVES ALL EXTREMITIES SPONTANEOUSLY. NOT FOLLOWING COMMANDS. BILATERAL SOFT WRIST RESTRAINTS IN PLACE TO PREVENT SELF-EXTUBATION. SBT DONE- SEE RT DOCUMENTATION. OG TO LIS WITH SCANT BROWN DRAINAGE. TORRES PATENT AND DRAINING SLIGHLTY CLOUDY YELLOW URINE WITH SEDIMENT. D10 1/2NS INFUSING AT 100CC/HR TO KEEP BLOOD GLUCOSE UP. WILL REPORT TO ONCOMING RN WHEN AVAILABLE.
[2020-10-09 06:42] LABS: Anion Gap 6 mmol/L (6-16); Blood Urea Nitrogen 7 mg/dL (8-24); Bun/Creatinine Ratio 7.3 (12.0-20.0); CO2, Blood 27 mmol/L (21-32); Calcium, Blood 7.3 mg/dL (8.5-10.1); Chloride, Blood 102 mmol/L (98-108); Creatinine, Blood 0.96 mg/dL (0.60-1.20); Glomerular Filtration Rate >60 (60-); Glucose, Blood 128 mg/dL (70-99); Phosphorus, Blood 2.4 mg/dL (2.5-4.9); Potassium, Blood 3.2 mmol/L (3.5-5.5); Sodium, Blood 135 mmol/L (136-145)
--- NOTE | 2020-10-09 07:59 | NUR ---
PT REMAINS INTUBATED, SEDATED, AND RESTRAINED. PT OPENS HIS EYES TO VERBAL AND NOXIOUS STIMULI AND BECOMES VERY AGITATED. BLANCHARD, BUT NOT FOLLOWING ANY COMMANDS. NO NOTED SEIZURES. PROPOFOL DRIP INITIALLY @ 25 MCG/KG/MIN. PRECEDEX DRIP INITIATED @ 0.4 MCG/KG/MIN, AND VERSED DRIP @ 2 MG/HR. TEMP 99.8. ECG SHOWS SR WITH RATE 80'S. TRENDING SBP 90-100'S-WILL TITRATE PRECEDEX UP AND ATTEMPT TO TITRATE DOWN BOTH PROPOFOL AND VERSED DRIPS TOLERATED-SBP AND MAP "SOFT." LIBRIUM GIVEN VIA OGT WITH ROUTINE AM MEDS TO HELP FACILITATE THE WEANING DOWN OF SEDATION/ETOH WITHDRAWL. LUNGS DIMINISHED IN THE BASES R>L-PT REMAINS ON THE SAME VENT SETTINGS" AC 16, TV 500, PEEP 5, FIO2 21%-SATS>90% ETT SUCTION PRODUCTIVE OF SMALL TO MODERATE AMOUNT OF THICK, YELLOW/GREEN SPUTUM. TORRES WITH SCAN AMOUNT OF YELLOW/ORANGE URINE WITH SEDIMENT.
--- NOTE | 2020-10-09 10:00 | NUR ---
EXPERIENCING DIFFICULTY WITH TITRATING SEDATION. CURRENTLY, PRECEDEX DRIP @0.6 MCG/KG/MIN-PROPOFOL AND VERSED ON STANDBY. SBP 60'S, BUT MAP 55-60. PT VERY AGITATED WITH POSITION CHANGE. WHEN UNRESTRAINED, HE REACHED FOR ETT AND TRIED TO HIT RN.
--- NOTE | 2020-10-09 11:01 | NUR ---
PT WIDE AWAKE ON PRECEDEX @ 0.6 MCG/KG/MIN-SITTING UP IN BED, REACHING FOR ETT. PRECEDEX TITRATED UP TO 0.7 MCG/KG/MIN AND PT MED WITH ATIVAN 2 MG IVPX1.
--- NOTE | 2020-10-09 11:08 | NUR ---
DR. APONTE IN TO SEE PT. UPDATED TO CURRENT VS AND STATUS. PT PLACED ON PS 8-RR 16, TV 600'S. SATS>90%
--- NOTE | 2020-10-09 12:00 | NUR ---
PT TOLERATING PS TRIAL WITH PRECEDEX @ 0.7MCG/KG/MIN. RR 16, TV 600'S, SATS>90%
--- NOTE | 2020-10-09 13:05 | NUR ---
PT SUCCESSFULLY EXTUBATED AND PLACED ON 2 LITERS NASAL CANULA-SATS>90% PT CURRENTLY COOPERATIVE WITH CARE AND NOT REACHING FOR IV LINES OR TUBES-RESTRAINTS DISCONTINUED.
--- NOTE | 2020-10-09 16:00 | NUR ---
PT RESTING QUIETLY ON PRECEDEX DRIP @ 0.3 MCG/KG/MIN. INTERMITTENTLY AGITATED, BUT PT SABRINA IS AT THE BEDSIDE AND SHE IS ABLE TO CALM HIM. MAP TRENDING 50'S. UPDATED. NS 500 CC BOLUS GIVEN. NO NOTED RESPIRATORY DISTRESS-SATS>90% ON 2 LITERS NASAL CANULA.
--- NOTE | 2020-10-09 17:10 | NUR ---
PT MORE AWAKE AND ALERT. PT HAVING NORMAL CONVERSATION WITH HIS . PT SMILING AND KISSING HIS -PRECEDEX @ 0.3 MCG/KG/MIN. CBG 220-D10 DECREASED RATE TO 50 CC/HR PER DR. APONTE VERBAL ORDER.
--- NOTE | 2020-10-09 19:00 | NUR ---
ASSUMED CARE ASSUMED CARE OF PATIENT. SLEEPING WHEN UNDISTURBED. SEDATED WITH PROPOFOL AT 0.7MCG/KG/HR. OPENS EYES TO VERBAL STIMULI. FOLLOWS SOME SIMPLE COMMANDS. BECOMES RESTLESS AND AGITATED WHEN AWAKE. MOVES ALL EXTREMTIES. MONITOR SHOWS SB-SR, RATE 58-60s. BP STABLE WITH MAP >65. AFEBRILE AT THIS TIME. NPO FOR NOW. TORRES PATENT AND DRAINING TO GRAVITY. D10 1/2NS INFUSING AT 50CC/HR PER ORDER. SEE SHIFT ASSESSMENT FOR FULL ASSESSMENT.
[2020-10-10 03:16] LABS: BASOPHILS ABSOLUTE AUTO 0.01 K/mm3 (0.00-0.23); BASOPHILS PERCENT AUTO 0 % (0-2); EOSINOPHILS ABSOLUTE AUTO 0.18 K/mm3 (0.00-0.68); EOSINOPHILS PERCENT AUTO 2 % (0-6); Hematocrit 31.8 % (37.0-53.0); Hemoglobin 11.3 g/dL (13.5-17.5); IMMATURE GRAN ABSOLUTE AUTO 0.03 K/mm3 (0.00-0.10); IMMATURE GRAN PERCENT AUTO 0 % (0-1); LYMPHOCYTES ABSOLUTE AUTO 0.86 K/mm3 (0.84-5.20); LYMPHOCYTES PERCENT AUTO 11 % (21-46); MONOCYTES ABSOLUTE AUTO 0.53 K/mm3 (0.16-1.47); MONOCYTES PERCENT AUTO 7 % (4-13); Mean Corpuscular HGB Conc 35.5 g/dL (31.5-36.5); Mean Corpuscular Volume 93 fL (80-100); Mean Platelet Volume 11.2 fL (9.1-12.4); NEUTROPHILS ABSOLUTE AUTO 6.36 K/mm3 (1.96-9.15); NEUTROPHILS PERCENT AUTO 80 % (41-73); Platelet Count 99 K/mm3 (150-400); RDW Coefficient Variation 14.4 % (11.7-14.2); RDW Standard Deviation 49.6 fL (35.1-46.3); Red Blood Cell Count 3.42 M/mm3 (4.30-5.90); White Blood Cell Count 7.97 K/mm3 (4.00-11.30)
[2020-10-10 03:31] LABS: Anion Gap 5 mmol/L (6-16); Blood Urea Nitrogen 5 mg/dL (8-24); Bun/Creatinine Ratio 5.8 (12.0-20.0); CO2, Blood 27 mmol/L (21-32); Calcium, Blood 7.3 mg/dL (8.5-10.1); Chloride, Blood 104 mmol/L (98-108); Creatinine, Blood 0.86 mg/dL (0.60-1.20); Glomerular Filtration Rate >60 (60-); Glucose, Blood 125 mg/dL (70-99); Magnesium, Blood 1.8 mg/dL (1.6-2.4); Phosphorus, Blood 3.5 mg/dL (2.5-4.9); Potassium, Blood 3.1 mmol/L (3.5-5.5); Sodium, Blood 136 mmol/L (136-145)
--- NOTE | 2020-10-10 03:50 | NUR ---
AGITATION DISORIENTED AND CONFUSED. PT REFUSES TO BELIEVE THAT HE IS IN THE HOSPITAL. HE IS ASKING FOR AN EXECUTIVE DIRECTOR BECAUSE WE'RE HOLDING HIM HOSTAGE. THREATENS STAFF BY STATING THAT HE WILL BREAK OUR NECKS. RAISES FISTS TOWARDS STAFF. PT ATTEMPTING TO GET OUT OF BED. UNCOOPERATIVE WITH CARE AT THIS TIME. MEDICATED WITH ATIVAN 2MG IV AT THIS TIME. PRECEDEX CONTINUES AT 0.7MCG/KG/HR.
--- NOTE | 2020-10-10 06:00 | NUR ---
SHIFT SUMMARY NO ACUTE CHANGES. PT CONTINUES TO BE ORIENTED TO SELF ONLY AT THIS TIME. FREQUENTLY ASKS WHERE HE IS AND DOES NOT REMEMBER RECENT EVENTS. HE IS OCCASIONALLY PARANOID AND THREATENING TOWARDS STAFF. PRECEDEX CONTINUES AT 0.7MCG/KG/HR. MEDICATED WITH ATIVAN 2MG IV X 1 DOSE FOR INCREASED AGITATION. MONITOR SHOWS SB-SR, RATE 50s-60s. BP STABLE. AFEBRILE. RA SATS STABLE. RESPIRATIONS EVEN AND UNLABORED. TORRES PATENT AND DRAINING. NPO T/O NOC D/T BOTH SEDATION AND AGITATION. D10 1/2 NS INFUSING AT 50CC/HR PER ORDER. KCL IV REPLACEMENT ORDERED PER ELECTROLYTE PROTOCOL. WILL REPORT TO ONCOMING RN WHEN AVAILABLE.
--- NOTE | 2020-10-10 10:44 | NUR ---
ASSUMED CARE OF PT, REPORT RCV'D FROM ANIKA BEYER. PT OPENS EYES TO VERBAL STIMULI, KNOWS THAT HE IS "IN THE HOSPITAL", BELIEVES THAT IT IS "2002". PT UNCOOPERATIVE WITH CARE, APPEARS PARANOID AND REQUESTS MEDICAL STAFF "LEAVE HIM ALONE". PT REMAINS ON PRECEDEX GTT @0.7 MCCG/KG/HR. WITH ATIVAN PER CIWA PROTOCOL. PT RECEIVING D10 1/2NS@50 ML/HR WITH Q4 CBG. SEE FULL SHIFT ASSESSMENT.
--- NOTE | 2020-10-10 11:00 | NUR ---
STARTING CLINIMIX @75 ML/HR. WILL PLACE D10 1/2NS ON STANDBY. ORDER TO RESTART AND TITRATE D10 TO MAINTAIN GLUCOSE>100.
--- NOTE | 2020-10-10 12:37 | NUR ---
PT'S CALLED, UPDATED WITH PT'S STATUS AND PLAN OF CARE. PER PT'S , PT HAS HAD INTERMITTENT CONFUSION WITH LIMITED SHORT TERM MEMORY FOR THE PAST 2-3 YEARS FOLLOWING A STROKE.
--- NOTE | 2020-10-10 18:52 | NUR ---
IV ACCESS- ATTEMPT X 2 UNSUCCESSFUL.
--- NOTE | 2020-10-10 19:28 | NUR ---
PT STABLE T/O SHIFT WITH LITTLE TO KNOW IMPROVEMENT IN MENTATION. PT CONTINUES TO HAVE INTERMITTENT CONFUSION WITH LABILE BEHAVIOR. PT'S BLOOD SUGAR WAS 85 AT 1600, MULTIPLE ATTEMPTS BY NURSING STAFF TO PLACE ADDITIONAL IV'S WITHOUT SUCCESS TO RESTART D10. PT THEN DECLINES TO ALLOW CHARGE NURSE TO ATTEMPT PICC LINE PLACEMENT. 1 HR FOLLOWING LAST BLOOD GLUCOSE PT'S CBG READ 41, PT AT THAT TIME PULLED REMAINING IV LEAVING NO IV ACCESS TO ADMINISTER GLUCOSE. ATTEMPTED QUICK BEDSIDE SWALLOW EVAL AND ENCOURAGED PT TO DRINK ORANGE JUICE. PT DRANK 2 SIPS WITHOUT ISSUE AND THEN REFUSED TO DRINK ANYMORE. CALL TO PHARMACIST AND DR. RASCON ORDER FOR GLUCAGEN IM WELL 4 MG ATIVAN IM. PT'S CIWA SCORES 9-11 T/O SHIFT, PT MEDICATED WITH IV ATIVAN APPROXIMATELY Q2H WITH GOOD RESULTS. PT'S AT BEDSIDE THIS AFTERNOON. DR. PERRY AT BEDSIDE THIS EVENING FOR EVALUATION. WILL REPORT TO ONCOMING NURSE.
--- NOTE | 2020-10-10 19:30 | NUR ---
ASSUMPTION OF CARE PT VERY AGITATED, PRECEDEX HELD DUE TO NO IV ACCESS. PT SPEECH IS VERY GARBLED, HARD TO ASSESS NEURO STATUS. RESTRAINTS PLACED ON PT FOR CENTRAL LINE PLACEMENT. PT WITH MOIST, OCCASSIONAL PRODUCTIVE COUGH. SPO2 97% ON RA. SBP 130'S, HR 109. PT WITH COOL LIMBS, WARM BLANKETS APPLIED. WILL CONTINUE TO MONITOR GLUCOSE LEVELS. ONCE CENTRAL LINE PLACED WILL RESUME IV MEDICATIONS.
--- NOTE | 2020-10-10 20:14 | NUR ---
CENTRAL LINE PLACEMENT DR. OVIEDO TO BEDSIDE TO PLACE CENTRAL LINE AT 1914. UNABLE TO ACCESS IJ D/T FLAT VEINS. ATTEMPTED RIGHT FEMORAL LINE INSTEAD WITH SUCCESS. PT REQUIRED 2MG OF ATIVAN AND 5MG OF ZYPREXA IM. PT VERY VERBALLY AGGRESSIVE WITH STAFF STATING HE IS GOING TO "SPIT" AND "PUNCH" US IN OUR FACES. CALLING DR. OVIEDO A "BITCH". PT PLACED IN PAULO VEST AND BILATERAL SOFT WRIST RESTRAINTS APPLIED AT 1924 D/T PT SITTING UP IN BED AND BEING AGGRESSIVE WITH STAFF. DR. OVIEDO GAVE THE OKAY TO UTILIZE LINE AFTER PLACEMENT; RESTARTED PRECEDEX AT 0.7MCG/KG/HR. CHANGED BEDDING AND REPOSITIONED PT AND LINES TO PREVENT HIM FROM PULLING THEM OUT. RIGHT ARM REMAINS UP AWAY FROM LINES D/T PT ATTEMPTING TO PICK AND PULL AT IV TUBING. PRIMARY RN TO TAKE BACK OVER CARE.
[2020-10-11 04:59] LABS: BASOPHILS ABSOLUTE AUTO 0.01 K/mm3 (0.00-0.23); BASOPHILS PERCENT AUTO 0 % (0-2); EOSINOPHILS ABSOLUTE AUTO 0.28 K/mm3 (0.00-0.68); EOSINOPHILS PERCENT AUTO 5 % (0-6); Hematocrit 34.3 % (37.0-53.0); Hemoglobin 11.9 g/dL (13.5-17.5); IMMATURE GRAN ABSOLUTE AUTO 0.03 K/mm3 (0.00-0.10); IMMATURE GRAN PERCENT AUTO 1 % (0-1); LYMPHOCYTES ABSOLUTE AUTO 0.89 K/mm3 (0.84-5.20); LYMPHOCYTES PERCENT AUTO 16 % (21-46); MONOCYTES ABSOLUTE AUTO 0.39 K/mm3 (0.16-1.47); MONOCYTES PERCENT AUTO 7 % (4-13); Mean Corpuscular HGB 32.4 pg (26.0-34.0); Mean Corpuscular HGB Conc 34.7 g/dL (31.5-36.5); Mean Corpuscular Volume 94 fL (80-100); Mean Platelet Volume 11.3 fL (9.1-12.4); NEUTROPHILS ABSOLUTE AUTO 4.02 K/mm3 (1.96-9.15); NEUTROPHILS PERCENT AUTO 72 % (41-73); Platelet Count 126 K/mm3 (150-400); RDW Standard Deviation 48.3 fL (35.1-46.3); Red Blood Cell Count 3.67 M/mm3 (4.30-5.90); White Blood Cell Count 5.62 K/mm3 (4.00-11.30)
[2020-10-11 05:26] LABS: Anion Gap 6 mmol/L (6-16); Blood Urea Nitrogen 6 mg/dL (8-24); CO2, Blood 26 mmol/L (21-32); Chloride, Blood 104 mmol/L (98-108); Creatinine, Blood 0.75 mg/dL (0.60-1.20); Glomerular Filtration Rate >60 (60-); Glucose, Blood 113 mg/dL (70-99); Magnesium, Blood 2.2 mg/dL (1.6-2.4); Potassium, Blood 3.3 mmol/L (3.5-5.5); Sodium, Blood 136 mmol/L (136-145)
--- NOTE | 2020-10-11 09:39 | NUR ---
ASSUMED CARE OF PT, REPORT RCV'D FROM ANIKA COLEMAN. PT ALERT TO SELF, PT BELIEVES HE IS "AT HOME" AND DOES NOT BELIEVE THAT HE IS IN THE HOSPITAL. PT REORIENTED TO TIME/PLACE/SITUATION. PT COOPERATIVE WITH CARE AT THIS TIME. PAULO VEST REMOVED AND PT REMAINS IN BILATERAL SOFT WRIST RESTRAINTS TO PROTECT LINES/CORDS. PRECEDEX INFUSING AT 0.7 MCG/KG/HR, ATIVAN GIVEN PER CIWA PROTOCOL. CURRENT CIWA 18. D10 1/2NS INFUSING AT 25 ML/HR, CBG OF 59 THIS AM, INCREASED D10 GTT TO 50 ML/HR. WILL CONTINUE TO MONITOR CBG'S. VSS AT THIS TIME. SEE FULL SHIFT ASSESSMENT
--- NOTE | 2020-10-11 17:35 | NUR ---
ASSUMED CARE ASSUMED CARE OF PT AT 1715. REPORT RECEIVED FROM ANIKA SHARMA. PT APPEARS TO BE SLEEPING COMFORTABLY AT THIS TIME, IN NO APPARENT DISTRESS. PT SEDATED WITH PRECEDEX AT 0.7MCG/KG. SBW RESTRAINTS IN PLACE TO PROTECT LINES. VITAL SIGNS STABLE. WILL CONTINUE TO MONITOR PT AND GIVE HANDOFF REPORT TO ONCOMING RN.
--- NOTE | 2020-10-11 20:00 | NUR ---
ASSUMED CARE OF PT AT 1915. REPORT RECEIVED AT BEDSIDE. PT PRESENTS IN BED. BI LAT WRIST RESTRAINTS IN PLACE SECONDARY TO PT'S INCREASE IN CONFUSION AND REPORTED ATTEMPTS TO PULL AT HIS TUBES AND LINES. PT DOES NOT ANSWER ANY QUESTIONS APPROPRIATELY. WILL REVIEW CHART AND PLAN OF CARE FOR THIS PT.
--- NOTE | 2020-10-12 00:30 | NUR ---
CALL MADE TO HOSPITALIST МАРИ[facility] DAY CONCERNING PT'S INCREASE IN AGITATION AND CIWA SCORING. ORDERS RECEIVED TO BE ABLE TO INCREASE PRECEDEX HIGH 1.4 MCG'S. CURRENTLY AT 1.0 MCG'S. HAVE MEDICATED PT WITH ATIVAN WITH IMPROVEMENT IN AGITATION AND ANXIOUSNESS. WILL CONTINUE TO MEDICATED APPROPRIATE FOR S/S ETOH WITHDRAWALS.
[2020-10-12 04:51] LABS: BASOPHILS ABSOLUTE AUTO 0.02 K/mm3 (0.00-0.23); BASOPHILS PERCENT AUTO 0 % (0-2); EOSINOPHILS ABSOLUTE AUTO 0.29 K/mm3 (0.00-0.68); EOSINOPHILS PERCENT AUTO 5 % (0-6); Hematocrit 35.5 % (37.0-53.0); Hemoglobin 12.1 g/dL (13.5-17.5); IMMATURE GRAN ABSOLUTE AUTO 0.03 K/mm3 (0.00-0.10); IMMATURE GRAN PERCENT AUTO 1 % (0-1); LYMPHOCYTES ABSOLUTE AUTO 0.68 K/mm3 (0.84-5.20); LYMPHOCYTES PERCENT AUTO 12 % (21-46); MONOCYTES ABSOLUTE AUTO 0.61 K/mm3 (0.16-1.47); MONOCYTES PERCENT AUTO 11 % (4-13); Mean Corpuscular HGB 32.3 pg (26.0-34.0); Mean Corpuscular HGB Conc 34.1 g/dL (31.5-36.5); Mean Corpuscular Volume 95 fL (80-100); Mean Platelet Volume 11.1 fL (9.1-12.4); NEUTROPHILS PERCENT AUTO 72 % (41-73); Platelet Count 145 K/mm3 (150-400); RDW Standard Deviation 48.9 fL (35.1-46.3); Red Blood Cell Count 3.75 M/mm3 (4.30-5.90); White Blood Cell Count 5.83 K/mm3 (4.00-11.30)
[2020-10-12 05:05] LABS: Alanine Aminotransfer (ALT/SGP 23 U/L (12-78); Albumin, Blood 2.2 g/dL (3.4-5.0); Albumin/Globulin Ratio 0.6 (0.8-1.8); Alk Phos 112 U/L (50-136); Anion Gap 4 mmol/L (6-16); Aspartate Aminotrans (AST/SGOT 58 U/L (12-37); Bilirubin, Total 0.2 mg/dL (0.1-1.0); Blood Urea Nitrogen 6 mg/dL (8-24); Bun/Creatinine Ratio 8.5 (12.0-20.0); CO2, Blood 27 mmol/L (21-32); Calcium, Blood 8.5 mg/dL (8.5-10.1); Chloride, Blood 105 mmol/L (98-108); Creatinine, Blood 0.71 mg/dL (0.60-1.20); Globulin, Blood 3.5 g/dL (2.2-4.0); Glomerular Filtration Rate >60 (60-); Glucose, Blood 112 mg/dL (70-99); Magnesium, Blood 1.7 mg/dL (1.6-2.4); Phosphorus, Blood 3.9 mg/dL (2.5-4.9); Potassium, Blood 3.3 mmol/L (3.5-5.5); Sodium, Blood 136 mmol/L (136-145); Total Protein, Blood 5.7 g/dL (6.4-8.2)
--- NOTE | 2020-10-12 06:52 | NUR ---
PT HAS HAD INCREASE IN AGITATION AND INCREASING CIWA SCORING. PRECEDEX HAS BEEN INCREASED TO 1.2 MCG'S. HAVE MEDICATED PT WITH 2 MG ATIVAN WITH GOOD RESULTS. PT HAS HAD PERIODS WHEREAS HE BECOMES VERY VERBALLY AGGRESSIVE. SOFT RESTRAINTS BI LAT WRIST TO PROTECT LINES. WILL CONTINUE TO MONITOR PT, AND WILL REPORT OFF TO ONCOMING RN.
--- NOTE | 2020-10-12 08:33 | NUR ---
ASSUMED CARE OF PT, REPORT RCV'D FROM ANIKA LAI. PT ON PRECEDEX 1.2 MCG/KG/HR AT START OF SHIFT, DECREASED TO 0.7 MCG/KG/HR TO ASSESS MENTATION. PT OPENS EYES TO VERBAL STIMULI, ALERT TO SELF ONLY. FOLLOWS COMMANDS AND COOPERATIVE WITH CARE. PT TAKEN OUT OF RESTRAINTS WHILE THIS NURSE IN ROOM, RANGE OF MOTION COMPLETED AND PT COOPERATIVE WITH ORAL CARE. PT PLACED BACK IN BILATERAL SOFT WRIST RESTRAINTS TO PROTECT LINES. GLUCOSE 113 THIS MORNING, D10 1/2NS @ 50 ML/HR. DR. GALLARDO AT BEDSIDE TO ASSESS PT. ORDER FOR LIQUID DIET TO ADVANCE TOLERATED. SEE FULL SHIFT ASSESSMENT.
--- NOTE | 2020-10-12 09:56 | NUR ---
GOAL TO DECREASE PRECEDEX TOLERATED. PRECEDEX INFUSING AT 0.5 MCG/KG/HR. PT ALERT TO SELF, ORIENTED PT TO PLACE AND SITUATION. CLEANED AND PLACED PT'S UPPER/LOWER DENTURES TO ASSIST WITH COMMUNICATION/COMPREHENSION. TRIALLING PT OUT OF WRIST RESTRAINTS HE HAS BEEN COOOPERATIVE WITH CARE AND NOT PULLING AT LINES/CORDS. DOOR/CURTAIN OPEN AND PT WITHIN DIRECT LINE OF SITE AND PT REMAINS ON CAMERA MONITORING FOR PT SAFETY.
--- NOTE | 2020-10-12 11:30 | NUR ---
PRECEDEX PLACED ON STANDBY AT 1045. AT THIS TIME PT REMAINS PLEASANT, ALERT TO SELF AND COOPERATIVE WITH CARE. PT DOES DISPLAY SHORT TERM MEMORY AND FREQUENTLY NEEDS REORIENTING. PT GIVEN FULL BEDBATH AND WAS ABLE TO DRINK APPLE JUICE WITH ASSISTANCE. PT HAS STRONG COUGH AND IS ABLE TO SUCTION OUT THICK YELLOW SECRETIONS WITH YANKAUER. PT STARTED ON LIBRIUM, GIVEN IN APPLESAUCE...PT TOLERATING WELL.
--- NOTE | 2020-10-12 17:16 | NUR ---
Care Assumed 1630 Pt sitting with and laughing/talking. A/o to being in hospital but unable to state correct date/year. Following directions, weak defense attorney strength. Pt on RA, lung sounds clear, moderate thick yellow secreations, about to suction with assitance. On D10 1/2 NS at rate of 40 ml/hr, glucose > 100. NSR. Pt hypertensive SBP 180's. Will reassess. Call light within reach.
--- NOTE | 2020-10-12 18:29 | NUR ---
Shift Summary Patient having visual hallucations, seeing dinner in his feet (no food present) and looking in directions where no one is present (denies hearing voices). Tremors with extended arms. Pt pulling off tele leads, BP cuff, and attempting to get out of bed to "go outside." Treated per emar and educated on importance of being in hospital. Pt states being in "rehab in [place]." Bed alarm on and pt on remote monitor camera. Pt hypertension treated per emar. NSR. Will report to oncoming shift.
[2020-10-13 03:53] LABS: BASOPHILS ABSOLUTE AUTO 0.02 K/mm3 (0.00-0.23); BASOPHILS PERCENT AUTO 0 % (0-2); EOSINOPHILS ABSOLUTE AUTO 0.21 K/mm3 (0.00-0.68); EOSINOPHILS PERCENT AUTO 3 % (0-6); Hematocrit 32.1 % (37.0-53.0); Hemoglobin 11.2 g/dL (13.5-17.5); IMMATURE GRAN ABSOLUTE AUTO 0.03 K/mm3 (0.00-0.10); IMMATURE GRAN PERCENT AUTO 1 % (0-1); LYMPHOCYTES ABSOLUTE AUTO 0.91 K/mm3 (0.84-5.20); LYMPHOCYTES PERCENT AUTO 14 % (21-46); MONOCYTES ABSOLUTE AUTO 1.03 K/mm3 (0.16-1.47); MONOCYTES PERCENT AUTO 16 % (4-13); Mean Corpuscular HGB 32.9 pg (26.0-34.0); Mean Corpuscular HGB Conc 34.9 g/dL (31.5-36.5); Mean Corpuscular Volume 94 fL (80-100); Mean Platelet Volume 10.6 fL (9.1-12.4); NEUTROPHILS ABSOLUTE AUTO 4.41 K/mm3 (1.96-9.15); NEUTROPHILS PERCENT AUTO 67 % (41-73); Platelet Count 166 K/mm3 (150-400); RDW Coefficient Variation 14.2 % (11.7-14.2); RDW Standard Deviation 49.7 fL (35.1-46.3); White Blood Cell Count 6.61 K/mm3 (4.00-11.30)
[2020-10-13 04:24] LABS: Anion Gap 5 mmol/L (6-16); Blood Urea Nitrogen 7 mg/dL (8-24); Bun/Creatinine Ratio 9.3 (12.0-20.0); CO2, Blood 27 mmol/L (21-32); Calcium, Blood 8.4 mg/dL (8.5-10.1); Chloride, Blood 104 mmol/L (98-108); Creatinine, Blood 0.75 mg/dL (0.60-1.20); Glomerular Filtration Rate >60 (60-); Glucose, Blood 100 mg/dL (70-99); Magnesium, Blood 1.6 mg/dL (1.6-2.4); Potassium, Blood 3.4 mmol/L (3.5-5.5); Sodium, Blood 136 mmol/L (136-145)
--- NOTE | 2020-10-13 06:22 | NUR ---
END OF SHIFT SUMMARY: PATIENT A/O TO SELF & FAMILY. FREQUENTLY ASKS FOR -SABRINA. PATIENT INITIALLY VERY PLEASANT AND EVEN STATED HE WAS 'STARVING TO ' WHEN ASKED WHY HE HAS BEEN REFUSING FOOD. PATIENT ATE A SHERBERT AND A CHOCOLATE PUDDING. PATINET SOON AFTER STARTED YELLING/PULLING/CONSTANTLY TRYING TO GET OUT OF BED AND CALLED ME SATAN. AFTER BEING IN THE ROOM FOR OVER AN HOUR TRYING TO GET PATIENT TO STAY IN BED, PRECEDEX WAS RESTARTED AFTER TRYING TO SWING AT STAFF. RESTRAINTS ORDERED AND APPLIED. PATIENT HAS REMAINED ON PRECEDEX DRIP AND ATIVAN GIVEN. PATIENT CONTINUES TO KICK LEGS OUT OF BED. K AND MG REPLACED THIS MORNING
--- NOTE | 2020-10-13 10:03 | NUR ---
Care Assumed 0700 Patient on Precedex 0.5 mcg/kg/hr, pt responds to verbal stimuli not alert to location/date/year. Able to follow directions occasonally and yelling/pulling at restraints other times. Being verbally abuse at times towards staff as well. Pt was able to take PO medication this morning and have half an ensure after being educted on current medications. Pt asking for , Nani, called and updated. She will be in around 1430. Temp miller draning to gravity, yellow urine. VSS. NSR. SWB in place.
--- NOTE | 2020-10-13 10:52 | NUR ---
Provider Visit Dr. Dowling in to see patient. Dr. Dowling would like D10 1/2 NS stopped. Attempt to titrate Precedex off at tolerated.
--- NOTE | 2020-10-13 13:44 | NUR ---
Update Attempted to titrate Precedex to 0.3 mcg/kg/hr and pt has started to become verbally abusive. States, "I want to go home, now!" and updated on current location/care being provided. Updated on coming soon and pt states, " She's never going to come." Prior to titrate precedex to 0.3, predecex 0.5 mcg/kg/hr and pt smiling/laughing, states being at [facility], and ate lunch with assitance. VSS. on RA. NSR.
--- NOTE | 2020-10-13 14:55 | NUR ---
PRECEDEX ON SB PRECEDEX PLACED ON SB, AT BEDSIDE. Attempting to see how pt will tolerate it.
--- NOTE | 2020-10-13 18:00 | NUR ---
Shift Summary Pt moved to ICU 3 with all of patients personal items. VSS. Pt anxious about leaving for the night at 1800. Precedex continues to be on standby and SWB remain off since 1500. Pt able to follow directions and calm/coopertive. VSS. Temp miller in place, T-max 99.8. Call light within reach. Pt able to tolerate eating both lunch and dinner, liquid diet. NSR. Will report to oncoming shift.
--- NOTE | 2020-10-13 18:29 | NUR ---
Update- Precedex restarted, 0.4 mcg/kg/hr due to patient attempting to get out of bed and difficult to redirect. Pt appears calm after and watching TV. Pt continues to be on camera monitoring.
--- NOTE | 2020-10-13 19:10 | NUR ---
ASSUMED CARE OF PT, BEDSIDE REPORT RECEIVED. PT IS RESTING QUIETLY RECLINING IN BED, HE IS ABLE TO STATE THAT HE IS IN [facility] IN [facility]LL HIS 'S NAME. HE STATES THAT HE DOES NOT KNOW WHAT YEAR IT IS AND BELIEVES THE MONTH TO BE JUNE. HE DOES INQUIRE IF HE WAS ADMITTED FOR A "STROKE" DISCUSSED SEIZURE ACTIVITY REASON FOR ADMISSION. PT DENIES PAIN, DENIES N/V, DENIES CP/PRESSURE, DENIES SOB/DYSPNEA. HE IS SPEAKING IN FULL SENTENCES WITHOUT VISIBLE INCREASED WORK OF BREATHING, SATS ARE MAINTAINING ON ROOM AIR. HRR, SINUS TO SINUS TACH ON MONITOR, RATE 90-LOW 100S, PRESSURES MAINTAINING, SKIN IS PALE WARM AND DRY WITH BRISK CAP REFILL, SMALL AMOUNT OF EDEMA IS NOTED BILAT LOWER EXTREMITIES. HYPOACTIVE BOWEL TONES ARE NOTED, ABD SOFT NONTENDER TO PALPATION. PT CBG IS NOTED AT 70 WITH OFFGOING RN, ENSURE SUPPLEMENT PROVIDED AND 100% CONSUMED, WILL MONITOR. CENTRAL LINE TO RIGHT GROIN, DRESSING CDI, SITE WNL. GTTS VERIFIED WITH OFFGOING RN, SEE ICU FLOWSHEET.
--- NOTE | 2020-10-13 20:00 | NUR ---
DR HUBBARD IN FOR PT EVALUATION, STATES THAT PT MENTATION REMAINS TOO IMPAIRED FOR EVALUATION, WILL REASSESS IN AM.
--- NOTE | 2020-10-13 22:46 | NUR ---
CENTRAL LINE BED ALARM SOUNDING IN ROOM, ARRIVED TO PT PULLING ON TORRES CATHETER TUBING, REDIRECTS WELL AT THIS TIME. ON REMOVAL OF BEDDING TO REPLACE TORRES TUBING IN STATLOCK SECUREMENT DEVICE, IT IS NOTED THAT PT'S RIGHT GROIN CENTRAL LINE WAS SELF DC'D, DRESSING OVER SITE REMAINS INTACT, NO BLEEDING IS NOTED, NO HEMATOMA IS NOTED, PRESSURE HELD. PERIPHERAL IV ACCESS ATTEMPT X 2 BY THIS RN WITHOUT SUCCESS TO LEFT FOREARM, PT TOLERATED WELL. SECOND RN SUCCESSFUL WITH PERIPHERAL IV ACCESS TO RIGHT FOREARM X 2, PT TOLERATED WELL. CONTACTED REMOTE MONITORING AND VERIFIED THAT PT IS MONITORED, EXPLAINED THAT HE NOW HAS IV ACCESS TO RIGHT FOREARM WELL TORRES CATHETER, CAUTIONED THAT PT DID SELF DC CENTRAL LINE TO RIGHT GROIN. PT DOES APOLOGIZE AND STATE THAT HE DID NOT REALIZE THAT HE WAS REMOVING CENTRAL LINE ACCESS.
--- NOTE | 2020-10-14 05:52 | NUR ---
PT INITIALLY AWARE THAT HE WAS IN [facility] IN [facility] HOWEVER APPROACHING MIDNOC CIWA SCORES WERE NOTED TO BE INCREASING, PRN LIBRIUM AND ATIVAN WERE ADMINISTERED AND PRECEDEX WAS TITRATED UP TO 1.4 MCG/KG/HR. HE HAS RESTED QUIETLY WITH CIWA SCORES DECREASED TO LESS THAN 10. HE IS AROUSABLE TO VERBAL STIMULI AND DOES INQUIRE REGARDING VISITING HOURS FOR SPOUSE SABRINA TO COME BACK IN AND SEE HIM. HE HAS BEEN PLEASANT AND COOPERATIVE WITH CARE THROUGHOUT THE NOC EVEN WITH THE INCREASED RESTLESSNESS/AGITATION INITIALLY. HE DID SELF DC THE CENTRAL LINE TO RIGHT GROIN HOWEVER SITE HAS REMAINED STABLE SINCE LINE WAS FOUND REMOVED IN THE BEDDING. PT WAS NOTED TO APOLOGIZE FOR PULLING LINE AND STATED THAT HE WAS HALF ASLEEP AND UNAWARE THAT HE WAS PULLING HIS CENTRAL LINE, HE STATED "IT WAS JUST SOMETHING ON MY LEG THAT'S NOT NORMALLY THERE SO I TOOK IT OFF"
[2020-10-14 07:16] LABS: BASOPHILS ABSOLUTE AUTO 0.02 K/mm3 (0.00-0.23); BASOPHILS PERCENT AUTO 0 % (0-2); EOSINOPHILS ABSOLUTE AUTO 0.35 K/mm3 (0.00-0.68); EOSINOPHILS PERCENT AUTO 6 % (0-6); Hemoglobin 10.5 g/dL (13.5-17.5); IMMATURE GRAN ABSOLUTE AUTO 0.01 K/mm3 (0.00-0.10); IMMATURE GRAN PERCENT AUTO 0 % (0-1); LYMPHOCYTES ABSOLUTE AUTO 0.84 K/mm3 (0.84-5.20); LYMPHOCYTES PERCENT AUTO 14 % (21-46); MONOCYTES ABSOLUTE AUTO 1.06 K/mm3 (0.16-1.47); MONOCYTES PERCENT AUTO 17 % (4-13); Mean Corpuscular HGB 33.1 pg (26.0-34.0); Mean Corpuscular Volume 95 fL (80-100); Mean Platelet Volume 10.1 fL (9.1-12.4); NEUTROPHILS ABSOLUTE AUTO 3.96 K/mm3 (1.96-9.15); NEUTROPHILS PERCENT AUTO 63 % (41-73); Platelet Count 194 K/mm3 (150-400); RDW Coefficient Variation 14.3 % (11.7-14.2); Red Blood Cell Count 3.17 M/mm3 (4.30-5.90); White Blood Cell Count 6.24 K/mm3 (4.00-11.30)
[2020-10-14 07:37] LABS: Anion Gap 6 mmol/L (6-16); Blood Urea Nitrogen 10 mg/dL (8-24); CO2, Blood 28 mmol/L (21-32); Calcium, Blood 8.4 mg/dL (8.5-10.1); Chloride, Blood 102 mmol/L (98-108); Creatinine, Blood 0.67 mg/dL (0.60-1.20); Glomerular Filtration Rate >60 (60-); Glucose, Blood 104 mg/dL (70-99); Potassium, Blood 3.8 mmol/L (3.5-5.5); Sodium, Blood 136 mmol/L (136-145)
--- NOTE | 2020-10-14 08:00 | NUR ---
ASSUMED CARE BEDSIDE REPORT RECIEVED. PT INITIALLY RESTING QUIETLY. PT AWAKENS EASILY TO VERBAL STIMULI. PT IS DROWSEY AND SPEECH IS SLURRED/GARBLED. PT IS MILDLY CONFUSED, BUT IS EASILY REDIRECTABLE. PRECEDEX INFUSING AT 1.4 MCG/KG/MIN INITIALLY. TITRATED DOWN TO 0.7 MCG/KG/MIN. CLINIMIX INFUSING AT 75 ML/HR. TORRES TEMP PROBE IN PLACE WITH YELLOW OUTPUT NOTED. VITAL SIGNS STABLE. WILL CONTINUE TO MONITOR.
--- NOTE | 2020-10-14 11:32 | NUR ---
DISORIENTED/CONFUSION PT WITH ESCALATION OF CONFUSION AND IMPULSIVELY ATTEMPTING TO GET OUT OF BED. PT IS NOT REDIRECTABLE. SPEECH IS GARBLED. PT WITH VISUAL AND AUDITORY HALLUCINATIONS. PRECEDEX INCREASED TO 1.4 MCG/KG/MIN. PT PLACED IN PAULO VEST AND SBW RESTRAINTS. WILL CONTINUE TO MONITOR.
--- NOTE | 2020-10-14 19:10 | NUR ---
ASSUMED CARE OF PT PT RESTING QUIETLY RECLINING IN BED, BILAT WRIST RESTRAINTS AND PAULO VEST ARE NOW NOTED. PT SPEECH CONTINUES MUMBLED AND DIFFICULT TO UNDERSTAND. HE ASKS WHAT TOWN HE IS IN AND WHERE HE IS AT WELL WHY HE IS HERE. REORIENTATION IS PROVIDED. HE DENIES NEEDS AT THIS TIME OTHER THAN A STRONG DESIRE TO GO HOME TONIGHT AND TO HAVE THE RESTRAINTS REMOVED. PT IS NOTED TO NOD HIS HEAD WHEN IT IS EXPLAINED THAT THE RESTRAINTS ARE IN PLACE TO PREVENT HIM FROM ACCIDENTALLY PULLING IV LINES AND HIS TORRES CATHETER OUT WELL TO PREVENT HIM FROM CLIMBING OUT OF BED THESE ACTIONS COULD LEAD TO INJURY.
--- NOTE | 2020-10-14 20:00 | NUR ---
DOWNTIME CHARTING RESTRAINT DOCUMENTATION ON PAPER CHARTING.
--- NOTE | 2020-10-14 22:27 | NUR ---
AGITATION PT AWAKE AND REPEATEDLY PUTTING FEET OFF EDGE OF BED AND SITTING UP ATTEMPTING TO GET UP OOB, STATES THAT HE WANTS THE WINDOW CLOSED "RIGHT THERE" "CLOSE THAT WINDOW!" EXPLAINED TO PT THAT HE IS IN THE HOSPITAL AND HE STATES "NO I'M NOT" DECLINES OFFER TO CALL PT'S SPOUSE SABRINA. CLOSES LEFT HAND INTO FIST AND CALLS THIS RN "STUPID BITCH" WITH ATTEMPTS TO REORIENT PATIENT. ATIVAN 2 MG IV ADMINISTERED, WILL MONITOR.
[2020-10-15 04:10] LABS: Dilantin (Phenytoin), Total 13.3 ug/mL (10.0-20.0)
--- NOTE | 2020-10-15 05:31 | NUR ---
PT FREQUENTLY AWAKE THROUGHOUT SHIFT, FEW EPISODES OF AGITATION DURING WHICH HE WAS DIFFICULT TO REDIRECT. THIS AM HE IS ALERT HOWEVER REQUIRES FREQUENT REORIENTATION AND DOES NOT REMEMBER THAT HE IS IN THE HOSPITAL FOR LONGER THAN A FEW MINUTES AT A TIME. HE IS PLEASANT AND COOPERATIVE WITH CARE THIS AM HOWEVER ALSO NOTED TO FREQUENTLY YELL OUT. HE HAS REMAINED IN PAULO VEST AND BILAT WRIST RESTRAINTS THROUGHOUT NOC WELL HAVING CENTRAL MONITORING CAMERA ON. HE DOES CONTINUE TO PULL AT LINES WHEN HE MOVES AROUND IN BED ENOUGH TO GET THEM WITHIN REACH OF HIS HANDS AND DOES FREQUENTLY ATTEMPT TO GET UP OOB WHEN AWAKE. PT WAS NOTED TO HAVE SATS DECREASE TO MID 80S ON ROOM AIR AND WAS INITIALLY PLACED ON NASAL CANNULA AT 2 L/MIN OXYGEN, THIS HAS BEEN TITRATED DOWN TO 1 L/MIN. OTHERWISE NO ACUTE CHANGES THIS SHIFT.
--- NOTE | 2020-10-15 08:13 | NUR ---
ASSUMED CARE OF PT, REPORT RCV'D FROM ANIKA OLIVO. PT ALERT TO VERBAL STIMULATION, KNOWS SELF AND WILL FOLLOW DIRECTION, PT UNABLE TO STATE LOCATION AND BELIEVES IT IS "2007". PT REORIENTED. PT PLEASANT AND COOPERATIVE WITH CARE AT THIS TIME. PT REQUESTS RESTRAINTS REMOVED. REMINDED PT SAFETY REASON RELATED TO RESTRAINTS AND GOAL TO TITRATE SEDATING MEDICATIONS. PT NOD IN AGREEMENT. PRECEDEX REDUCED FROM 1.4 MCG/KG/HR TO 1.0 MCG/KG/MIN. CLINIMIX @ 75 ML/HR. VSS AT THIS TIME. BED IN LOW/LOCKED POSITION, BED ALARM ON, DOOR/CURTAIN OPEN, PAULO VEST AND BILATERAL SOFT WRIST RESTRAINTS IN PLACE. SEE FULL SHIFT ASSESSMENT.
--- NOTE | 2020-10-15 09:11 | NUR ---
PT SITTING UP, PLEASANT AND COOPERATIVE. ATE SOME APPLESAUCE AND ABLE TO SWALLOW HIS MEDS WHOLE IN APPLESAUCE. ORAL CARE DONE BEFORE AND AFTER EATING D/T THICK SECRETIONS IN MOUTH. WILL CONTINUE TO ENCOURAGE ORAL FLUIDS AND MEALS.
--- NOTE | 2020-10-15 11:18 | NUR ---
PT OOB IN CHAIR. PT ABLE TO STAND AND PIVOT TO CHAIR WEAKLY. APPROPRIATE AND FOLLOWING COMMANDS AT THIS TIME, ABLE TO EXPRESS NEEDS AND CONCERNS. PRECEDEX GTT @ 0.7 MCG/KG/HR. PT REMAINS ON CAMERA MONITORING, AND IN PAULO/BILATERAL SOFT WRIST RESTRAINTS.
--- NOTE | 2020-10-15 11:54 | NUR ---
PT REMAINS UP IN CHAIR. PRECEDEX PLACED ON STANDBY. PT ATE 1/2 CHICKEN BREAST AND WAS ABLE TO FEED HIMSELF WITH ASSISTANCE. PT REMAINS OCCASIONALLY CONFUSED AND REQUIRES FREQUENT REORIENTATION.
--- NOTE | 2020-10-15 13:00 | NUR ---
PT REMAINS SITTING IN CHAIR AND COOPERATIVE WITH CARE. PT AND OT BOTH WORKED WITH PT WITH GOOD RESULT. RECOMMENDING DISCHARGE TO SNF. PT MADE MEDICAL STATUS, NO TELE. BILATERAL SOFT RESTRAINTS AND TORRES REMOVED. PAULO REMAINS IN PLACE AND PT ON CAMERA.
--- NOTE | 2020-10-15 15:29 | NUR ---
PT TO BE TRANSFERRED TO MEDICAL FLOOR ROOM 346, REPORT GIVEN TO ANIKA BRYAN.
--- NOTE | 2020-10-15 16:04 | NUR ---
TRANSFER PT TRANSFERED WITH AT BEDSIDE. PT IN PAULO VEST. ALARM SET. WATER PROVIDED AT BEDSIDE. L KNEE ELEVATED ON A PILLOW FOR COMFORT. PT DENIES OTHER NEEDS AT THIS TIME. LS CLEAR, BASES DIM. HS REGULAR. EDEMA TO BLE AND L ARM. PULL UP PUT ON PT FOR POTENTIAL INCONT. CONFUSED BUT ALERT AT THIS TIME.
[2020-10-16 05:17] LABS: Base Excess Venous 2.2 mmol/L; Bicarbonate Venous 26.9 mmol/L (24.0-30.0); PCO2 Venous 30.6 mmHg (38-42); PO2 Venous 113 mmHg (38-42); pH Blood Venous 7.52 (7.34-7.37)
[2020-10-16 05:19] LABS: BASOPHILS ABSOLUTE AUTO 0.03 K/mm3 (0.00-0.23); BASOPHILS PERCENT AUTO 0 % (0-2); EOSINOPHILS ABSOLUTE AUTO 0.05 K/mm3 (0.00-0.68); EOSINOPHILS PERCENT AUTO 1 % (0-6); Hematocrit 35.2 % (37.0-53.0); Hemoglobin 12.4 g/dL (13.5-17.5); IMMATURE GRAN ABSOLUTE AUTO 0.04 K/mm3 (0.00-0.10); IMMATURE GRAN PERCENT AUTO 1 % (0-1); LYMPHOCYTES ABSOLUTE AUTO 0.82 K/mm3 (0.84-5.20); LYMPHOCYTES PERCENT AUTO 9 % (21-46); MONOCYTES ABSOLUTE AUTO 1.33 K/mm3 (0.16-1.47); MONOCYTES PERCENT AUTO 15 % (4-13); Mean Corpuscular HGB 32.6 pg (26.0-34.0); Mean Corpuscular HGB Conc 35.2 g/dL (31.5-36.5); Mean Corpuscular Volume 93 fL (80-100); Mean Platelet Volume 10.4 fL (9.1-12.4); NEUTROPHILS ABSOLUTE AUTO 6.57 K/mm3 (1.96-9.15); NEUTROPHILS PERCENT AUTO 74 % (41-73); Platelet Count 311 K/mm3 (150-400); RDW Coefficient Variation 13.8 % (11.7-14.2); RDW Standard Deviation 47.5 fL (35.1-46.3); White Blood Cell Count 8.84 K/mm3 (4.00-11.30)
[2020-10-16 05:48] LABS: Alanine Aminotransfer (ALT/SGP 65 U/L (12-78); Albumin, Blood 2.6 g/dL (3.4-5.0); Albumin/Globulin Ratio 0.6 (0.8-1.8); Alk Phos 139 U/L (50-136); Anion Gap 8 mmol/L (6-16); Aspartate Aminotrans (AST/SGOT 131 U/L (12-37); Bilirubin, Total 0.6 mg/dL (0.1-1.0); Blood Urea Nitrogen 11 mg/dL (8-24); Bun/Creatinine Ratio 16.9 (12.0-20.0); CO2, Blood 24 mmol/L (21-32); Calcium, Blood 8.8 mg/dL (8.5-10.1); Chloride, Blood 99 mmol/L (98-108); Creatinine, Blood 0.65 mg/dL (0.60-1.20); Globulin, Blood 4.4 g/dL (2.2-4.0); Glomerular Filtration Rate >60 (60-); Glucose, Blood 72 mg/dL (70-99); Potassium, Blood 3.5 mmol/L (3.5-5.5); Sodium, Blood 131 mmol/L (136-145)
--- NOTE | 2020-10-16 06:39 | NUR ---
SHIFT SUMMARY A/O TO SELF AND FAMILY ONLY. PT ATTEMPTING TO GET OOB MULTIPLE TIMES T/O THE NIGHT WELL TAKING OFF TELE AND MUMBLING INCOHERENTLY. SPEECH CONTINUES TO BE SLURRED. HYPERTENSIVE T/O SHIFT, HOSPITALIST NOTIFIED, ORDERS FOR TELE AND PRN IV LABETALOL. YOVANNY RED, SWOLLEN, AND WARM TO THE TOUCH, PREVIOUS RN NOTED POSSIBLE IV INFILTRATION. ELEVATED ON PILLOWS. BED IN LOWEST POSITION, ALARM AND REMOTE CAMERA ON, CALL LIGHT IN REACH. WILL CONTINUE TO MONITOR AND REPORT TO ONCOMING RN.
[2020-10-16] MEDS ORDERED: LEVETIRACETAM1000 M1 PO (15:07)
--- NOTE | 2020-10-16 16:23 | NUR ---
DISCHARGE SUMMARY PT DISCHARGE TODAY TO HOME ORDERED AT 1605 THIS SHIFT. PT's AT BEDSIDE DURING D/C PROCESS. PT A&O TO SELF, SITUATION AND FAMILY. PLEASANT AND COOPERATIVE TO CARE. PT AND FAMILY VERBALIZED UNDERSTANDING OF DISCHARGE ORDERS. NO COMPLAINTS OR CONCERNS FROM FAMILY PRIOR TO DISCHARGE. NO C/O PAIN OR ANY DISCOMFORT NOTED. IV LINE DISCONTINUED PRIOR TO DISCHARGE. PT's PAULO VEST DISCONTINUED, PT's BEHAVIOR APPROPRIATE, COOPERATIVE TO CARE. DISCHARGE PAPERWORK GIVEN TO PT AND UPON DISCHARGE.
== END 2020-10-16 16:00 | disposition home or self-care (01) | DRG 208 ==
LOC: ER 17:33 → ICUE 21:30 → ICUW 21:30 → ICUE 21:42 → ICUW 10-10 18:20 → ICUE 10-13 17:35 → MEDS 10-15 15:37
PROVIDERS: Emergency Medicine; Internal Medicine; Internal Medicine Critical Care Medicine; Psychiatry & Neurology Neurology; ADMIT Internal Medicine
PROC: 0BH18EZ Insertion of Endotracheal Airway into Trachea, Via Natural or Artificial Opening Endoscopic (ICD-10-PCS; principal; 2020-10-07)
PROC: 5A1935Z Respiratory Ventilation, Less than 24 Consecutive Hours (ICD-10-PCS; 2020-10-07)
PROC: 06HY33Z Insertion of Infusion Device into Lower Vein, Percutaneous Approach (ICD-10-PCS; 2020-10-10)
DX: J96.01 Acute respiratory failure with hypoxia (principal); G93.41 Metabolic encephalopathy; J69.0 Pneumonitis due to inhalation of food and vomit; F10.239 Alcohol dependence with withdrawal, unspecified; G40.501 Epileptic seizures related to external causes, not intractable, with status epilepticus; E44.0 Moderate protein-calorie malnutrition; M62.82 Rhabdomyolysis; E87.2 Acidosis; I10 Essential (primary) hypertension; Z86.73 Personal history of transient ischemic attack (TIA), and cerebral infarction without residual deficits; D63.8 Anemia in other chronic diseases classified elsewhere; E78.5 Hyperlipidemia, unspecified; J44.9 Chronic obstructive pulmonary disease, unspecified; Z79.899 Other long term (current) drug therapy; Z79.82 Long term (current) use of aspirin; Z91.030 Bee allergy status; F17.210 Nicotine dependence, cigarettes, uncomplicated; E87.6 Hypokalemia; G62.9 Polyneuropathy, unspecified; E16.2 Hypoglycemia, unspecified; D3A.019 Benign carcinoid tumor of the small intestine, unspecified portion; I25.10 Atherosclerotic heart disease of native coronary artery without angina pectoris; I95.2 Hypotension due to drugs; T42.75XA Adverse effect of unspecified antiepileptic and sedative-hypnotic drugs, initial encounter
CPT/HCPCS: 31500; 36415; 36556; 36600; 51702; 70450; 71045; 80048; 80053; 80185; 81001; 82550; 82553; 82803; 82947; 83605; 83735; 84100; 84132; 84146; 84484; 85025; 87040; 87070; 87205; 93005; 93010; 93306; 94002; 94003; 94640; 94760; 95819; 96365-59; 96367-59; 96375-59; 97162; 97166; 97530; 99291-25; A9270; C1751; C9113; G0480; J0295; J0330; J1165; J1610; J1630; J1650; J1953; J2060; J2250; J2704; J3010; J3411; J3475; J3480; J7030; J7040; J7042; J7050; J7060; J7131; Q2009

== ENCOUNTER 2021-01-25 21:52 | Emergency (ER) | payer MEDICARE ==
[~2021-01-25] VITALS: Ht 200.7 cm; Wt 76.2 kg
[~2021-01-25 21:52] MED LIST changes: +AMLODIPINE BESYL5 MG PO; +GABAPENTIN600 MG PO; +Hydrochloroth12.5 MG PO; +LEVETIRACETAM1000 M1 PO; +LOSARTAN POTAS100 MG PO; +METOPROLOL TART25 MG PO
== END 2021-01-25 23:58 | disposition home or self-care (01) ==
LOC: ER 21:52
DX: S01.411A Laceration without foreign body of right cheek and temporomandibular area, initial encounter (principal); Z23 Encounter for immunization; Z91.030 Bee allergy status; Z79.82 Long term (current) use of aspirin; Z79.899 Other long term (current) drug therapy; G40.909 Epilepsy, unspecified, not intractable, without status epilepticus; Z86.73 Personal history of transient ischemic attack (TIA), and cerebral infarction without residual deficits; F17.210 Nicotine dependence, cigarettes, uncomplicated; W18.09XA Striking against other object with subsequent fall, initial encounter
CPT/HCPCS: 12013; 70450; 72125; 90471; 90714; 99284-25; A9270

== ENCOUNTER 2021-12-29 15:15 | Emergency (ER) | payer MEDICARE ==
[~2021-12-29] VITALS: Ht 200.7 cm; Wt 68.0 kg
[2021-12-29] MEDS ORDERED: K-Dur20 MEQ PO (15:34)
[2021-12-29] MEDS ORDERED: GABAPENTIN600 MG PO (15:34)
[2021-12-29 15:46] LABS: BASOPHILS ABSOLUTE AUTO 0.03 K/mm3 (0.00-0.23); BASOPHILS PERCENT AUTO 0 % (0-2); EOSINOPHILS ABSOLUTE AUTO 0.02 K/mm3 (0.00-0.68); EOSINOPHILS PERCENT AUTO 0 % (0-6); Hematocrit 45.2 % (37.0-53.0); Hemoglobin 15.1 g/dL (13.5-17.5); IMMATURE GRAN ABSOLUTE AUTO 0.03 K/mm3 (0.00-0.10); IMMATURE GRAN PERCENT AUTO 0 % (0-1); LYMPHOCYTES ABSOLUTE AUTO 0.41 K/mm3 (0.84-5.20); LYMPHOCYTES PERCENT AUTO 5 % (21-46); MONOCYTES ABSOLUTE AUTO 0.37 K/mm3 (0.16-1.47); MONOCYTES PERCENT AUTO 5 % (4-13); Mean Corpuscular HGB 29.7 pg (26.0-34.0); Mean Corpuscular HGB Conc 33.4 g/dL (31.5-36.5); Mean Corpuscular Volume 89 fL (80-100); Mean Platelet Volume 9.9 fL (9.1-12.4); NEUTROPHILS ABSOLUTE AUTO 7.37 K/mm3 (1.96-9.15); NEUTROPHILS PERCENT AUTO 90 % (41-73); Platelet Count 167 K/mm3 (150-400); RDW Coefficient Variation 18.4 % (11.7-14.2); RDW Standard Deviation 59.8 fL (35.1-46.3); Red Blood Cell Count 5.08 M/mm3 (4.30-5.90); White Blood Cell Count 8.23 K/mm3 (4.00-11.30)
[2021-12-29 16:01] LABS: Albumin, Blood 3.1 g/dL (3.4-5.0); Albumin/Globulin Ratio 0.6 (0.8-1.8); Bilirubin, Total 0.6 mg/dL (0.1-1.0); Bun/Creatinine Ratio 7.8 (12.0-20.0); Calcium, Blood 9.3 mg/dL (8.5-10.1); Creatinine, Blood 0.64 mg/dL (0.60-1.20); Globulin, Blood 4.9 g/dL (2.2-4.0); Magnesium, Blood 1.7 mg/dL (1.6-2.4); Potassium, Blood 4.5 mmol/L (3.5-5.5)
[2021-12-29 16:08] LABS: Dilantin (Phenytoin), Total 1.1 ug/mL (10.0-20.0)
== END 2021-12-29 18:23 | disposition home or self-care (01) ==
LOC: ER 15:15
PROVIDERS: Student in an Organized Health Care Education/Training Program
DX: G40.909 Epilepsy, unspecified, not intractable, without status epilepticus (principal); F17.210 Nicotine dependence, cigarettes, uncomplicated; Z91.030 Bee allergy status; Z79.899 Other long term (current) drug therapy; Z79.82 Long term (current) use of aspirin
CPT/HCPCS: 71046; 80053; 80185; 83735; 85025; 93005; 93010; 94644; 94664; J1165; J1953

== ENCOUNTER 2022-01-30 01:06 | Emergency (ER) | payer MEDICARE ==
[~2022-01-30] VITALS: Ht 200.7 cm; Wt 77.1 kg
[~2022-01-30 01:06] MED LIST changes: +K-Dur20 MEQ PO
== END 2022-01-30 08:30 | disposition home or self-care (01) ==
LOC: ER 01:06
DX: S01.01XA Laceration without foreign body of scalp, initial encounter (principal); S40.029A Contusion of unspecified upper arm, initial encounter; S80.10XA Contusion of unspecified lower leg, initial encounter; R40.2362 Coma scale, best motor response, obeys commands, at arrival to emergency department; R40.2142 Coma scale, eyes open, spontaneous, at arrival to emergency department; R40.2252 Coma scale, best verbal response, oriented, at arrival to emergency department; W19.XXXA Unspecified fall, initial encounter; F17.210 Nicotine dependence, cigarettes, uncomplicated; Z91.038 Other insect allergy status; Z79.899 Other long term (current) drug therapy; Z79.82 Long term (current) use of aspirin
CPT/HCPCS: 12002; 70450; 72125; 99284-25

== ENCOUNTER 2022-03-21 18:11 | Emergency (ER) | payer MEDICARE ==
[~2022-03-21] VITALS: Ht 170.2 cm; Wt 74.8 kg
[2022-03-21 18:57] LABS: BASOPHILS ABSOLUTE AUTO 0.04 K/mm3 (0.00-0.23); BASOPHILS PERCENT AUTO 1 % (0-2); EOSINOPHILS ABSOLUTE AUTO 0.09 K/mm3 (0.00-0.68); EOSINOPHILS PERCENT AUTO 1 % (0-6); Hematocrit 40.7 % (37.0-53.0); Hemoglobin 13.7 g/dL (13.5-17.5); IMMATURE GRAN ABSOLUTE AUTO 0.01 K/mm3 (0.00-0.10); IMMATURE GRAN PERCENT AUTO 0 % (0-1); LYMPHOCYTES ABSOLUTE AUTO 1.13 K/mm3 (0.84-5.20); LYMPHOCYTES PERCENT AUTO 16 % (21-46); MONOCYTES ABSOLUTE AUTO 0.47 K/mm3 (0.16-1.47); MONOCYTES PERCENT AUTO 7 % (4-13); Mean Corpuscular HGB 33.4 pg (26.0-34.0); Mean Corpuscular HGB Conc 33.7 g/dL (31.5-36.5); Mean Corpuscular Volume 99 fL (80-100); NEUTROPHILS ABSOLUTE AUTO 5.34 K/mm3 (1.96-9.15); NEUTROPHILS PERCENT AUTO 75 % (41-73); Platelet Count 310 K/mm3 (150-400); RDW Coefficient Variation 13.2 % (11.7-14.2); RDW Standard Deviation 48.3 fL (35.1-46.3); White Blood Cell Count 7.08 K/mm3 (4.00-11.30)
[2022-03-21 19:17] LABS: Source, Urine Voided
[2022-03-21 19:18] LABS: Albumin, Blood 3.1 g/dL (3.4-5.0); Albumin/Globulin Ratio 0.7 (0.8-1.8); Bilirubin, Total 0.4 mg/dL (0.1-1.0); Bun/Creatinine Ratio 9.9 (12.0-20.0); Calcium, Blood 8.6 mg/dL (8.5-10.1); Creatinine, Blood 0.71 mg/dL (0.60-1.20); Globulin, Blood 4.7 g/dL (2.2-4.0); Potassium, Blood 4.7 mmol/L (3.5-5.5); Total Protein, Blood 7.8 g/dL (6.4-8.2)
[2022-03-21 19:28] LABS: Appearance, Urine Clear (Clear); Bilirubin, Urine Neg (Neg); Blood, Urine 2+ (Neg); Color, Urine Yellow (P-Yellow); Glucose Qualitative, Urine Neg (Neg); Ketones, Urine Neg (Neg); Leukocyte Esterase, Urine 2+ (Neg); Nitrite, Urine Neg (Neg); Protein, Urine Neg (Neg); Urobilinogen, Urine NORM (Normal)
[2022-03-21 19:48] LABS: Bacteria Few /hpf; Mucus Light (0-Heavy); Red Blood Cells, Urine 0-2 /hpf (0-2); Squamous Epithelial Cells Few /hpf (Few)
[2022-03-21] MEDS ORDERED: MECL25 PO (21:16)
[2022-03-21] MEDS ORDERED: CEFD300 PO (21:16)
== END 2022-03-21 22:08 | disposition home or self-care (01) ==
LOC: ER 18:11
PROVIDERS: Emergency Medicine
DX: R42 Dizziness and giddiness (principal); R26.9 Unspecified abnormalities of gait and mobility; N39.0 Urinary tract infection, site not specified; E11.9 Type 2 diabetes mellitus without complications; I10 Essential (primary) hypertension; E78.5 Hyperlipidemia, unspecified; Z91.030 Bee allergy status; Z79.899 Other long term (current) drug therapy; Z79.82 Long term (current) use of aspirin
CPT/HCPCS: 36415; 70450; 70496; 70498; 80053; 81001; 83735; 85025; 93005; 93010; A9270; G0480; Q9967

== ENCOUNTER → 2022-04-15 | Outpatient (CLI) | payer MEDICARE ==
[~2022-04-15] MED LIST changes: +CEFD300 PO
[2022-04-15 15:14] LABS: Source, Urine Clean Catch
[2022-04-15 16:43] LABS: Appearance, Urine Turbid (Clear); Bilirubin, Urine Neg (Neg); Blood, Urine Neg (Neg); Color, Urine Amber (P-Yellow); Glucose Qualitative, Urine Neg (Neg); Ketones, Urine Neg (Neg); Leukocyte Esterase, Urine Neg (Neg); Nitrite, Urine Neg (Neg); Protein, Urine 2+ (Neg); Urobilinogen, Urine 1+ (Normal)
[2022-04-15 16:56] LABS: Amorphous Heavy (0-Heavy); Bacteria Few /hpf; Red Blood Cells, Urine 0-2 /hpf (0-2); Squamous Epithelial Cells Rare /hpf (Few); White Blood Cells, Urine 0-2 /hpf (0-5)
== END | disposition home or self-care (01) ==
LOC: LAB SHORT 14:30
PROVIDERS: Physician Assistant
DX: R41.0 Disorientation, unspecified (principal)
CPT/HCPCS: 81001

== ENCOUNTER 2022-05-28 13:51 | Emergency (ER) | payer MEDICARE ==
[~2022-05-28] VITALS: Ht 188 cm; Wt 63.5 kg
== END 2022-05-28 15:10 | disposition home or self-care (01) ==
LOC: ER 13:51
DX: R41.0 Disorientation, unspecified (principal); E87.8 Other disorders of electrolyte and fluid balance, not elsewhere classified; F17.210 Nicotine dependence, cigarettes, uncomplicated; Z86.73 Personal history of transient ischemic attack (TIA), and cerebral infarction without residual deficits
CPT/HCPCS: 99283

== ENCOUNTER 2022-06-07 09:12 | Emergency (ER) | payer MEDICARE ==
[~2022-06-07] VITALS: Ht 185.4 cm; Wt 65.8 kg
[2022-06-07 10:10] LABS: BASOPHILS ABSOLUTE AUTO 0.03 K/mm3 (0.00-0.23); BASOPHILS PERCENT AUTO 1 % (0-2); EOSINOPHILS ABSOLUTE AUTO 0.04 K/mm3 (0.00-0.68); EOSINOPHILS PERCENT AUTO 1 % (0-6); Hematocrit 45.5 % (37.0-53.0); Hemoglobin 15.1 g/dL (13.5-17.5); IMMATURE GRAN ABSOLUTE AUTO 0.02 K/mm3 (0.00-0.10); IMMATURE GRAN PERCENT AUTO 0 % (0-1); LYMPHOCYTES ABSOLUTE AUTO 1.24 K/mm3 (0.84-5.20); LYMPHOCYTES PERCENT AUTO 25 % (21-46); MONOCYTES ABSOLUTE AUTO 0.47 K/mm3 (0.16-1.47); MONOCYTES PERCENT AUTO 9 % (4-13); Mean Corpuscular HGB 33.5 pg (26.0-34.0); Mean Corpuscular HGB Conc 33.2 g/dL (31.5-36.5); Mean Corpuscular Volume 101 fL (80-100); Mean Platelet Volume 9.1 fL (9.1-12.4); NEUTROPHILS ABSOLUTE AUTO 3.21 K/mm3 (1.96-9.15); NEUTROPHILS PERCENT AUTO 64 % (41-73); Platelet Count 300 K/mm3 (150-400); RDW Coefficient Variation 16.2 % (11.7-14.2); RDW Standard Deviation 60.3 fL (35.1-46.3); Red Blood Cell Count 4.51 M/mm3 (4.30-5.90); White Blood Cell Count 5.01 K/mm3 (4.00-11.30)
[2022-06-07 10:49] LABS: Alanine Aminotransfer (ALT/SGP 14 U/L (12-78); Albumin, Blood 3.1 g/dL (3.4-5.0); Albumin/Globulin Ratio 0.6 (0.8-1.8); Alk Phos 171 U/L (50-136); Anion Gap 2 mmol/L (6-16); Aspartate Aminotrans (AST/SGOT 35 U/L (12-37); Bilirubin, Total 0.5 mg/dL (0.1-1.0); Blood Urea Nitrogen 4 mg/dL (8-24); Bun/Creatinine Ratio 6.3 (12.0-20.0); CO2, Blood 29 mmol/L (21-32); Chloride, Blood 101 mmol/L (98-108); Creatinine, Blood 0.64 mg/dL (0.60-1.20); Dilantin (Phenytoin), Total 33.1 ug/mL (10.0-20.0); Globulin, Blood 5.3 g/dL (2.2-4.0); Glomerular Filtration Rate 108 (60-); Glucose, Blood 84 mg/dL (70-99); Potassium, Blood 4.8 mmol/L (3.5-5.5); Sodium, Blood 132 mmol/L (136-145); Total Protein, Blood 8.4 g/dL (6.4-8.2)
== END 2022-06-07 15:40 | disposition home or self-care (01) ==
LOC: ER 09:12
PROVIDERS: Emergency Medicine
DX: S06.9X0A Unspecified intracranial injury without loss of consciousness, initial encounter (principal); W19.XXXA Unspecified fall, initial encounter; R27.0 Ataxia, unspecified; F03.90 Unspecified dementia, unspecified severity, without behavioral disturbance, psychotic disturbance, mood disturbance, and anxiety; I12.9 Hypertensive chronic kidney disease with stage 1 through stage 4 chronic kidney disease, or unspecified chronic kidney disease; N18.9 Chronic kidney disease, unspecified; E11.22 Type 2 diabetes mellitus with diabetic chronic kidney disease; J45.909 Unspecified asthma, uncomplicated
CPT/HCPCS: 36415; 80053; 80185; 85025